=== PATIENT | male | born 1955 | race Caucasian/White ===

== ENCOUNTER → 2020-06-04 09:57 | Outpatient (BNVA) | payer MEDICARE, OTHER, SELFPAY | PROVIDERS: PCP Dermatology; Visit Provider Internal Medicine Rheumatology | DX: L40.50 Arthropathic psoriasis, unspecified (principal); L40.0 Psoriasis vulgaris; Z79.899 Other long term (current) drug therapy; Z11.59 Encounter for screening for other viral diseases; Z11.1 Encounter for screening for respiratory tuberculosis; R49.0 Dysphonia; L40.9 Psoriasis, unspecified; M45.9 Ankylosing spondylitis of unspecified sites in spine | CPT/HCPCS: 36415; 73130; 80076; 82565; 84443; 85025; 85651; 86480; 86704; 86803; 86812; 87340; 99204 ==

== ENCOUNTER 2020-06-04 11:51 | Outpatient (CLI) | payer MEDICARE, OTHER, SELFPAY ==
--- NOTE | 2020-06-04 12:12 | XR_ITS ---
WS: [id number] Right hand, 3 views, 06/04/2020 Clinical Data: Z79.899 - Other longterm (current) drug therapy Comparison: None. Findings: No fractures or dislocations are seen. There is osteoarthritic change with abundant spurr ing of the third through fifth DIP joints of the right hand. There is osteoarthritic narrowing of the right first IP joint with soft tissue swelling and narrowing of the right second DIP joint. There is minimal osteoarthritic change at the base of the right first metacarpal. No periarticular deminerali zation is seen. XR/XR hand RT min 3V* [id number] Impression: Diffuse osteoarthritic changes especially of the DIP joints of the right hand.
--- NOTE | 2020-06-04 12:12 | XR_ITS ---
WS: [id number] Left hand, 3 views, 06/04/2020 Clinical Data: Z79.899 - Other [facility] (current) drug therapy Comparison: None. Findings: No fractures or dislocations are seen. There is osteoarthritic change with bony overgrowth of the DIP joints of the second, fourth and fifth fingers of the left hand. There is osteoarthritic change of t he left first IP joint and of the left third DIP joint. There is osteoarthritis at the base of left f irst metacarpal. No periarticular demineralization is noted. XR/XR hand LT min 3V* [id number] Impression: 1. Osteoarthritis of the DIP joints and the left first IP joint of the hand. 2. Osteoarthritis of the base of the left first metacarpal.
[2020-06-04 12:44] LABS: Basophils % 0.6 %; Eosinophils # 0.2 10^3/uL (0.0-0.8); Hematocrit 50.2 % (42.0-52.0); Hemoglobin 16.4 g/dL (11.7-16.6); Lymphocytes # 1.1 10^3/uL (0.8-4.8); Lymphocytes % 15.9 %; Mean Corpuscular HGB Conc 32.7 g/dL (30.0-36.0); Mean Corpuscular Hemoglobin 29.7 pg (28.0-34.0); Mean Corpuscular Volume 90.9 fL (80-94); Mean Platelet Volume 8.3 fL (7.4-10.4); Monocytes # 0.5 10^3/uL (0.2-0.9); Monocytes % 8.1 %; Neutrophils # 4.81 10^3/uL (1.8-7.7); Neutrophils % 72.2 %; Nucleated Red Blood Cells % 0 %; Platelet Count 464 10^3/cmm (130-400); Red Blood Count 5.52 10^6/uL (4.1-5.3); White Blood Count 6.7 10^3/uL (4.0-10.0)
[2020-06-04 13:12] LABS: Alanine Aminotransferase 19 U/L (0-41); Albumin Level 4.3 g/dL (3.5-5.2); Alkaline Phosphatase 85 IU/L (40-130); Aspartate Amino Transferase 24 U/L (0-40); Globulin 2.9 g/dL (1.3-4.6); Glomerular Filtration Rate 113.2 mL/min (90-130); Thyroid Stimulating Hormone 1.23 uIU/mL (0.27-4.20); Total Bilirubin 0.7 mg/dL (0.15-1.2); Total Protein 7.2 g/dL (6.6-8.7)
[2020-06-04 13:41] LABS: Hepatitis B Core AB, Total Non-Reactive (Nonreactive); Hepatitis B Surface Antigen Non-Reactive (Nonreactive); Hepatitis C Virus Antibody Non-Reactive (Nonreactive)
[2020-06-04 14:23] LABS: Erythrocyte Sedimentation Rate 5 mm/hr (0-10)
[2020-06-06 12:57] LABS: Quantiferon Mitogen 3.98 IU/mL; Quantiferon Nil 0.01 IU/mL; Quantiferon TB Gold NEGATIVE (NEGATIVE)
[2020-06-07 17:53] LABS: HLA-B27 NEGATIVE (NEGATIVE)
== END 2020-06-04 11:52 | disposition home or self-care (01) ==
LOC: LAB 12:10
PROVIDERS: PCP Dermatology; Visit Provider Internal Medicine Rheumatology
DX: L40.50 Arthropathic psoriasis, unspecified (principal); L40.9 Psoriasis, unspecified; Z79.899 Other long term (current) drug therapy; Z11.59 Encounter for screening for other viral diseases; M45.9 Ankylosing spondylitis of unspecified sites in spine; Z11.1 Encounter for screening for respiratory tuberculosis
CPT/HCPCS: 36415; 73130; 80076; 82565; 84443; 85025; 85651; 86480; 86704; 86803; 86812; 87340

== ENCOUNTER → 2020-06-19 12:10 | Outpatient (BNVA) | payer MEDICARE, OTHER, SELFPAY | PROVIDERS: PCP Dermatology; Visit Provider Otolaryngology | DX: D49.1 Neoplasm of unspecified behavior of respiratory system (principal); Z20.822 Contact with and (suspected) exposure to COVID-19 | CPT/HCPCS: 87635 ==

== ENCOUNTER 2020-06-25 07:45 | Day surgery (SDC) | payer MEDICARE, OTHER, SELFPAY ==
[2020-06-24 14:27] VITALS: BMI 24.4
[2020-06-25 08:13] VITALS: BP 160/94; PULSE 90; RESP 16; TEMP 36.6; O2SAT 97
[2020-06-25] MEDS: sodium chloride 0.9% 1,000 ML 30 ML IV (08:26)
--- NOTE | 2020-06-25 09:23 | W.PM.OPSUD ---
Surgery/Procedure H&P Update DATE OF PROCEDURE: June 25, 2020 DATE H&P PERFORMED: 06/16/20 H&P UPDATE INFORMATION: I have reviewed H&P completed within last 30 days, I have examined patient prior to procedure and No changes to prior documentation PREOP DIAGNOSIS: Left glottic exophytic mass and chronic hoarseness PRIMARY INDICATION FOR PROCEDURE: Chronic hoarseness with left glottic exophytic mass found on flexible laryngoscopy PLANNED PROCEDURE: Operation Date: 06/25/20 09:40 Proposed Procedures p Direct Laryngoscopy w/ biopsy 23215 D49.1(Not Applicable) - Bernard Mendiola MD
[2020-06-25] MEDS: EPINEPHrine 1 mg/mL INJ XX (09:52)
--- NOTE | 2020-06-25 10:22 | P.OP_ITS ---
Operative Report Date of procedure: June 25, 2020 Pre-op Diagnosis: Left glottic exophytic mass and chronic hoarseness Post-op diagnosis: same Post-op Findings: Findings at surgery were exophytic irregular lobulated and papilliform mass extending from the superior aspect of the left true vocal cord and extending to the anterior commissure and just subglottic at that location. Procedure Done: Direct suspension microscopic laryngoscopy with excision of left vocal cord and anterior commissure mass for biopsy Specimens removed/disposition: Multiple samples of left anterior vocal cord and anterior commissure lesion Pathology: Biopsy specimens from glottic mass left vocal cord and anterior commi ssure and subglottic region Surgeon: Bernard Mendiola Anesthesia: General Estimated blood loss (mL): 5 Complications: No complications Findings: Findings on direct laryngoscopy revealed that the exophytic mass appeared to be emanating from the superior aspect of the left true vocal cord extending to the medial edge and anterior commissure and slightly subglottic. Condition: stable Disposition: PACU Brief History: 65-year-old male patient has had progressive hoarseness for months and was found on flexible laryngoscopy to have a mass emanating from the left anterior cord and into the space between the anterior commissure and left cord. He therefore is being brought to the operating room at this time to undergo direct suspension microscopic laryngoscopy with biopsy. The procedure its risks and complications were explained in detail to the patient in the office setting. These risks included bleeding infection numbness scarring swelling bruising hoarseness need for additional treatment as this is a diagnostic procedure only. If there is malignancy found or if papilloma is found he will need additional treatment. More serious risk such as heart attack stroke or not surviving the surgery were also discussed. With this understood informed consent was granted and witnessed. Procedure: Description of procedure: The patient was placed on the operating table in the supine position. Adequate general endotracheal tube anesthesia was obtained. He was given Ancef IV for prophylaxis and Decadron to help with postoperative edema. A timeout was accomplished identifying the patient date of plan procedure allergies fire risk and medications given. With all in agr eement the procedure continued. The table was rotated 90 degrees. The head was dropped 15 degrees to the horizontal. The eyes were taped shut and the head drape was applied in usual fashion. A tooth protector was placed over the upper dentition. K-Y jelly was applied around the area. An anterior commissure operating laryngoscope was then utilized it was inserted positioned and then suspended from [facility]. A microscope with a 400 lens was then used to visualize this area and with exploration and movement with cup forceps it was evident that this was highly irregular exophytic mass with papillary formations. It appeared to emanate from the superior aspect of the left true vocal cord over its medial edge and then to the anterior commissure. It did extend subglottically for small distance. Multiple pieces and segments were taken some small and some large. These were all sent to the pathologist for permanent section diagnosis. After as much as I could remove was removed the area was treated with cottonoid with 1-1000 epinephrine. After few minutes this was removed. The area was suctioned clean. An LTA was dispensed using 3 mL of lidocaine. Excess was suctioned. The scope was taken down from its suspension and the scope was removed. The mouth guard was removed. The throat was suctioned with the Amicar suction and there was no sign of any active bleeding at this time. Head drape and tape were removed and the patient was returned to the anesthesiologist for wake-up and extubation. He tolerated the procedure well and had an estimated blood loss of 5 mL.
[2020-06-25 10:27] VITALS: BP 110/72; PULSE 92; RESP 20; TEMP 36.3; O2SAT 92
[2020-06-25 10:30] VITALS: BP 101/64; PULSE 94; RESP 18; O2SAT 94
[2020-06-25 10:35] VITALS: BP 122/78; PULSE 88; RESP 20; TEMP 36.9; O2SAT 97
[2020-06-25 10:43] VITALS: BP 130/82; PULSE 88; RESP 18; TEMP 36.9; O2SAT 98
[2020-06-25 10:58] VITALS: BP 131/80; PULSE 81; RESP 17; TEMP 36.6; O2SAT 97
[2020-06-25] MEDS: TRAMadol 50 mg Tablet PO (11:04)
--- NOTE | 2020-06-25 15:15 | ANE.PACU2 ---
Inpatient post-anesthesia follow up: Airway intact: Yes Vital signs: Temperature 98 F Pulse Rate 81 Respiratory Rate 17 Blood Pressure 131/80 Pulse Oximetry 97 Oxygen Delivery Me thod Room Air Oxygen Flow Rate 6 Fraction of Inspir ed Oxygen Hydration adequate: Yes Nausea and vomiting: No Pain level: 2 Mental status: Baseline
== END 2020-06-25 11:50 | disposition home or self-care (01) ==
PROVIDERS: PCP Dermatology; Visit Provider Otolaryngology
PROC: 0CJS8ZZ Inspection of Larynx, Via Natural or Artificial Opening Endoscopic (ICD-10-PCS; CPT 31541; principal; 2020-06-25 09:30)
DX: C32.0 Malignant neoplasm of glottis (principal); R49.0 Dysphonia; D49.1 Neoplasm of unspecified behavior of respiratory system
CPT/HCPCS: 31541; 88305; 96365; J0171; J0330; J0690; J2704; J7030

== ENCOUNTER → 2020-07-08 14:51 | Outpatient (BNVA) | payer MEDICARE, OTHER, SELFPAY | PROVIDERS: PCP Dermatology; Visit Provider Internal Medicine Rheumatology | DX: L40.50 Arthropathic psoriasis, unspecified (principal); L40.0 Psoriasis vulgaris; C32.0 Malignant neoplasm of glottis; D49.1 Neoplasm of unspecified behavior of respiratory system; Z79.899 Other long term (current) drug therapy | CPT/HCPCS: 99214 ==

== ENCOUNTER 2020-07-18 05:54 | Outpatient (RCR) | payer MEDICARE, OTHER, SELFPAY ==
--- NOTE | 2020-07-07 14:11 | N.ONRAD NP_ITS ---
Radiation Oncology Consultation Patient Name: Dudley Moses Date of : 1955 Date of Service: 07/07/2020 Attending Physician: Pravez Christina M.D. Dudley Moses was seen in consultation this afternoon at the request of Bernard Mendiola M.D. for consideration of head and neck radiotherapy for the management of his recently diagnosed glottic cancer. He initially presented to the [facility] Department of with intermittent hoarseness for approximately 1 year. A flexible laryngoscopy performed on June 16, 2020 demonstrated a 5 mm x 3 mm x 2 mm left true vocal cord lesion without evidence of vocal cord paralysis. A direct microscopic laryngoscopy with excision of left vocal cord lesion was completed on June 25, 2020 identified the left true reviewed in [facility]) diagnosed a nonkeratinizing, moderately differentiated invasive squamous cell carcinoma. The patient was evaluated for consideration of definitive radiotherapy. I discussed with Mr. Moses the AJCC clinical stage II (T2N0) glottic cancer specific to his diagnosis and the National Comprehensive Cancer Network Guidelines endorsing partial laryngectomy or radiotherapy. I would recommend accelerated fractionated radiotherapy as per the [employer] trial that randomized T1 and T2 glottic cancer patients to conventional or hypofractionation. The study failed to demonstrate non-inferiority of the accelerated treatment (local progression-free survival trended positively for the hypofractionated arm). Prior to beginning treatment, a computed tomographic radiotherapy planning scan will be acquired to delineate the clinical target volume. The potential toxicities of head and neck radiotherapy were reviewed. He has verbalized understanding would like to proceed as recommended. The patient's medical treatment plan has been discussed with Bernard Mendiola M.D. Signed by: Dr. Parvez Christina 07/07/2020 2:09:41 PM
--- NOTE | 2020-07-09 | CT_ITS ---
Radiation Therapy Planning CT images; total exam DLP: 557.83 mGy-cm MTDD
--- NOTE | 2020-07-14 12:10 | ONCRAD TMN_ITS ---
Radiation Oncology Weekly Treatment Management Patient: Dudley Moses MR#: [id number] : 1955 Attending Physician: Dr. Cas Wells Date of Service: 07/14/2020 Referring Physician(s) : Dr. 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 ID: [id number], Energy: 6X, Dose/Fx (cGy): 225, #Fx: , Dose Correction (cGy): 0, Total Dose (cGy): 225, Start Date: 07/14/2020, Elapsed Days: 0 Reason for visit: The patient is being seen today as part of their regularly scheduled weekly on treatment visits to assess for acute toxicities from radiotherapy. Review of Systems: Just began treatment today. Active at home. Never smoked. Has scheduled cataract surgeries on 08/12 and 08/26/2020. Vital Signs: Performed on 07/14/2020 11:33 AM BMI - 24.547 kg/m2 (high), Height - 71.00 in, Weight - 176.0 lbs, Temperature - 97.9 f, Pulse - 88, Respiration - 18, O2 Sat - 96 %, Pain - 0, Fatigue - 0 and BP - 157/ 94 mm(hg)(high). Physical Exam: omitted Imaging: Radiation therapy imaging related to accurate target localization (i.e. KV, MV and CBCT) was reviewed. Appropriate changes, if any, were made to ensure treatment accuracy. Plan: Good tolerance of treatment. Discussed use of salt and soda gargles and skin care. If a day needs to be delayed for cataract surgery this would be acceptable. Continue treatment as planned. Signed by: Dr. Cas Wells 07/14/2020 12:08:28 PM
== END 2020-07-21 23:59 | disposition home or self-care (01) ==
LOC: ONCMED 05:54
PROVIDERS: PCP Dermatology; Visit Provider Radiology Radiation Oncology
DX: Z51.0 Encounter for antineoplastic radiation therapy (principal); C32.0 Malignant neoplasm of glottis; Z79.899 Other long term (current) drug therapy
CPT/HCPCS: 77290; 77295; 77300; 77334; 77387; 77412; 99205

== ENCOUNTER 2020-08-20 05:50 | Outpatient (RCR) | payer MEDICARE, OTHER, SELFPAY ==
--- NOTE | 2020-07-22 11:48 | ONCRAD TMN_ITS ---
Radiation Oncology Treatment Management Note Patient Name: Dudley Moses Date of : 1955 Date of Service: 07/22/2020 Attending Physician: Parvez Christina M.D. Dudley Moses is a 65 year old white male diagnosed with a clinical stage II (T2N0) glottic cancer. A direct microscopic laryngoscopy with excision of the left vocal cord lesion completed on June 25, 2020 identified a nonkeratinizing, moderately differentiated invasive squamous cell carcinoma. The T2 designation is on account of subglottic extension. The patient has received 13.5 Gy of a prescribed 67.5 Villanueva with a 3D-conformal radiotherapy plan utilizing opposed lateral portal rios with a wedge pair. Upon review of systems, he denied any complaints related to radiotherapy. On physical examination, the patient weighed 177 lbs. His temperature was 97.8 ???F with a blood pressure of 152/87 mmHg. His pulse was 98 bpm and the respiratory rate was 18. No erythema within the treatment rios. Continue glottic radiotherapy as prescribed. Signed by: Dr. Parvez Christina 07/22/2020 11:47:50 AM
--- NOTE | 2020-07-28 11:52 | ONCRAD TMN_ITS ---
Radiation Oncology Treatment Management Note Patient Name: Dudley Moses Date of : 1955 Date of Service: 07/28/2020 Attending Physician: Parvez Christina M.D. Dudley Moses is a 65 year old white male diagnosed with a clinical stage II (T2N0) glottic cancer. A direct microscopic laryngoscopy with excision of the left vocal cord lesion completed on June 25, 2020 identified a nonkeratinizing, moderately differentiated invasive squamous cell carcinoma. The T2 designation is on account of subglottic extension. The patient has received 22.5 Gy of a prescribed 67.5 Villanueva with a 3D-conformal radiotherapy plan utilizing opposed lateral portal rios with a wedge pair. Upon review of systems, he described mild odynophagia. On physical examination, the patient weighed 175 lbs. His temperature was 97.9 ???F with a blood pressure of 155/91 mmHg. His pulse was 92 bpm and the respiratory rate was 18. No erythema within the treatment rios. Continue glottic radiotherapy as planned. I will prescribe oxycodone elixir for odynophagia. Signed by: Dr. Parvez Christina 07/28/2020 11:52:05 AM
--- NOTE | 2020-08-04 11:50 | ONCRAD TMN_ITS ---
Radiation Oncology Treatment Management Note Patient Name: Dudley Moses Date of : 1955 Date of Service: 08/04/2020 Attending Physician: Parvez Christina M.D. Dudley Moses is a 65 year old white male diagnosed with a clinical stage II (T2N0) glottic cancer. A direct microscopic laryngoscopy with excision of the left vocal cord lesion completed on June 25, 2020 identified a nonkeratinizing, moderately differentiated invasive squamous cell carcinoma. The T2 designation is on account of subglottic extension. The patient has received 29.25 Gy of a prescribed 67.5 Villanueva with a 3D-conformal radiotherapy plan utilizing opposed lateral portal rios with a wedge pair. Upon review of systems, he denied any symptoms attributable to radiotherapy. On physical examination, the patient weighed 179 lbs. His temperature was 98.1 ???F with a blood pressure of 142/87 mmHg. His pulse was 84 bpm and the respiratory rate was 18. There was a Grade I dermatitis within the treatment rios. Continue glottic radiotherapy as prescribed. Signed by: Dr. Parvez Christina 08/04/2020 11:48:31 AM
--- NOTE | 2020-08-11 11:25 | ONCRAD TMN_ITS ---
Radiation Oncology Treatment Management Note Patient Name: Dudley Moses Date of : 1955 Date of Service: 08/11/2020 Attending Physician: Parvez Christina M.D. Dudley Moses is a 65 year old white male diagnosed with a clinical stage II (T2N0) glottic cancer. A direct microscopic laryngoscopy with excision of the left vocal cord lesion completed on June 25, 2020 identified a nonkeratinizing, moderately differentiated invasive squamous cell carcinoma. The T2 designation is on account of subglottic extension. The patient has received 40.5 Gy of a prescribed 67.5 Villanueva with a 3D-conformal radiotherapy plan utilizing opposed lateral portal rios with a wedge pair. Upon review of systems, he denied any symptoms attributable to radiotherapy. On physical examination, the patient weighed 179 lbs. His temperature was 98.1 ???F with a blood pressure of 142/87 mmHg. His pulse was 84 bpm and the respiratory rate was 18. There was a grade II dermatitis within the treatment rios. Continue glottic radiotherapy as planned. Signed by: Dr. Parvez Christina 08/11/2020 11:23:17 AM
--- NOTE | 2020-08-18 11:37 | ONCRAD TMN_ITS ---
Radiation Oncology Treatment Management Note Patient Name: Dudley Moses Date of : 1955 Date of Service: 08/18/2020 Attending Physician: Parvez Christina M.D. Dudley Moses is a 65 year old white male diagnosed with a clinical stage II (T2N0) glottic cancer. A direct microscopic laryngoscopy with excision of the left vocal cord lesion completed on June 25, 2020 identified a nonkeratinizing, moderately differentiated invasive squamous cell carcinoma. The T2 designation is on account of subglottic extension. The patient has received 49.5 Gy of a prescribed 67.5 Villanueva with a 3D-conformal radiotherapy plan utilizing opposed lateral portal rios with a wedge pair. Upon review of systems, he denied any symptoms attributable to radiotherapy. On physical examination, the patient weighed 178 lbs. His temperature was 98.8 ???F with a blood pressure of 157/79 mmHg. His pulse was 103 bpm and the respiratory rate was 20. There was a grade II dermatitis within the treatment rios. Continue glottic radiotherapy as prescribed. Signed by: Dr. Parvez Christina 08/18/2020 11:35:45 AM
== END 2020-08-20 23:59 | disposition home or self-care (01) ==
LOC: ONCMED 05:50
PROVIDERS: PCP Dermatology; Visit Provider Radiology Radiation Oncology
DX: Z51.0 Encounter for antineoplastic radiation therapy (principal); C32.0 Malignant neoplasm of glottis; Z79.899 Other long term (current) drug therapy
CPT/HCPCS: 77336; 77387; 77412

== ENCOUNTER 2020-09-01 05:37 | Outpatient (RCR) | payer MEDICARE, OTHER, SELFPAY ==
--- NOTE | 2020-08-27 12:36 | ONCRAD TMN_ITS ---
Radiation Oncology Treatment Management Note Patient Name: Dudley Moses Date of : 1955 Date of Service: 08/27/2020 Attending Physician: Parvez Christina M.D. Dudley Moses is a 65 year old white male diagnosed with a clinical stage II (T2N0) glottic cancer. A direct microscopic laryngoscopy with excision of the left vocal cord lesion completed on June 25, 2020 identified a nonkeratinizing, moderately differentiated invasive squamous cell carcinoma. The T2 designation is on account of subglottic extension. The patient has received 60.75 Gy of a prescribed 67.5 Villanueva with a 3D-conformal radiotherapy plan utilizing opposed lateral portal rios with a wedge pair. Upon review of systems, he denied any symptoms attributable to radiotherapy. On physical examination, the patient weighed 179 lbs. His temperature was 98.6 ???F with a blood pressure of 152/87 mmHg. His pulse was 95 bpm and the respiratory rate was 18. There was a grade I dermatitis within the treatment rios. Continue glottic radiotherapy as planned. Signed by: Dr. Parvez Christina 08/27/2020 12:35:18 PM
== END 2020-09-20 23:59 | disposition home or self-care (01) ==
LOC: ONCMED 05:37
PROVIDERS: PCP Dermatology; Visit Provider Radiology Radiation Oncology
DX: Z51.0 Encounter for antineoplastic radiation therapy (principal); C32.0 Malignant neoplasm of glottis; Z79.899 Other long term (current) drug therapy
CPT/HCPCS: 77014; 77336; 77387; 77412; 77427

== ENCOUNTER 2020-10-03 06:20 | Outpatient (RCR) | payer MEDICARE, OTHER, SELFPAY ==
--- NOTE | 2020-10-03 11:29 | ONCRAD EPV_ITS ---
Radiation Oncology Follow-Up Note Patient Name: Dudley Moses Date of : 1955 Date of Service: 10/03/2020 Attending Physician: Parvez Christina M.D. Dudley Moses returned to my office this morning for a scheduled follow-up appointment. He completed glottic radiotherapy in August for the management of a clinical stage II (T2N0) glottic cancer. A direct microscopic laryngoscopy with excision of the left vocal cord lesion completed on June 25, 2020 identified a nonkeratinizing, moderately differentiated invasive squamous cell carcinoma. The T2 designation is on account of subglottic extension. Daily radiotherapy was administered between the dates of July 14, 2020 through September 01, 2020. A prescribed dose of 67.5 Gy was delivered in 30 fractions encompassing 50 elapsed days. On review of systems, He reported improving hoarseness. On physical examination, the patient weighed of 175 pounds. The temperature is 97.4???F. His blood pressure was 147/89 mmHg. The pulse was 91 bpm and his respiratory rate was 18 breaths per minute. Examination of the neck did not demonstrate any hyperpigmentation. In summary, Mr. Moses returned for a post-radiotherapy appointment. He has no sequelae from treatment. A recent flexible nasopharyngoscopy identified a complete response to treatment. He will continue follow-up with ENT as scheduled. Signed by: Dr. Parvez Christina 10/03/2020 11:28:44 AM
== END 2020-10-21 23:59 | disposition home or self-care (01) ==
LOC: ONCMED 06:20
PROVIDERS: PCP Dermatology; Visit Provider Radiology Radiation Oncology
DX: C32.0 Malignant neoplasm of glottis (principal); R49.0 Dysphonia; L81.9 Disorder of pigmentation, unspecified; Z79.899 Other long term (current) drug therapy
CPT/HCPCS: 99024

== ENCOUNTER → 2020-11-19 10:32 | Outpatient (BNVA) | payer MEDICARE, OTHER, SELFPAY | PROVIDERS: PCP Dermatology; Visit Provider Internal Medicine Rheumatology | DX: Z71.89 Other specified counseling (principal); Z79.899 Other long term (current) drug therapy; L40.0 Psoriasis vulgaris; I10 Essential (primary) hypertension; L40.50 Arthropathic psoriasis, unspecified; Z13.220 Encounter for screening for lipoid disorders; Z13.6 Encounter for screening for cardiovascular disorders; Z76.89 Persons encountering health services in other specified circumstances | CPT/HCPCS: 36415; 80053; 80061; 80076; 82565; 85025; 86140 ==

== ENCOUNTER 2020-12-09 12:52 | Outpatient (CLI) | payer MEDICARE, OTHER, SELFPAY ==
--- NOTE | 2020-12-09 13:00 | XR_ITS ---
WS: [id number] LEFT KNEE: 3 VIEW(S) TECHNIQUE: AP, oblique(s) and lateral. HISTORY: L knee pain COMPARISON: None available. No fracture or dislocation. Minimal joint space narrowing medial compartment. Small osteophytes along the posterior surface of pa tella. No joint effusion. No soft tissue abnormality. XR/XR knee LT 3V* [id number] IMPRESSION: No acute fracture. No joint effusion.
== END 2020-12-09 12:53 | disposition home or self-care (01) ==
PROVIDERS: PCP Dermatology; Visit Provider Family Medicine
DX: L40.0 Psoriasis vulgaris (principal); L40.50 Arthropathic psoriasis, unspecified; C32.0 Malignant neoplasm of glottis; D49.1 Neoplasm of unspecified behavior of respiratory system; Z71.89 Other specified counseling; Z79.899 Other long term (current) drug therapy; M25.562 Pain in left knee
CPT/HCPCS: 73562; 99214

== ENCOUNTER → 2021-06-24 12:50 | Outpatient (BNVA) | payer MEDICARE, OTHER, SELFPAY | PROVIDERS: PCP Family Medicine; Visit Provider Otolaryngology | DX: C32.0 Malignant neoplasm of glottis (principal) | CPT/HCPCS: 31575; 99204; 99214 ==

== ENCOUNTER 2021-07-16 07:53 | Day surgery (SDC) | payer MEDICARE, OTHER, SELFPAY ==
[2021-07-15 09:48] VITALS: BMI 24.4
[2021-07-16] VITALS (8 sets, daily range): BP systolic 123–148; BP diastolic 69–87; PULSE 82–90; RESP 12–16; TEMP 36.1–36.8; O2SAT 92–97
[2021-07-16] MEDS: sodium chloride 0.9% 1,000 ML 30 ML IV (08:57)
--- NOTE | 2021-07-16 09:26 | ANES.PREANE2 ---
Pre-Anesthetic Assessment Height/Weight: Height 1.8 m Weight 79.379 kg Temp Pulse Resp BP Pulse Ox 98.2 F 90 16 148/87 97 07/16/21 08:48 07/16/21 08:48 07/16/21 08:48 07/16/21 08:48 07/16/21 08:48 Preop Diagnosis: Left true vocal cord malignancy Operation Date: 07/16/21 09:35 Proposed Procedures p Direct microscopoic shirin laryngoscopy with excision of L vocal cord 30457/36657/C32.0(Not Applicable) - Bernard Mendiola MD Familial anesthetic complications: none Was Beta Jerardo taken within 24 hours: N/A Was Clonidine taken within 24 hours: N/A Last intake: Intake Last Liquid Date 07/15/21 Last Liquid Time 23:00 Last Solid Date 07/15/21 Last Solid Time 21:00 Social No alcohol and No tobacco Exam alert, oriented x 3, clear to auscultation bilaterally and regular rate & rhythm Airway Mallampati: Class III Dentition: false Pulmonary None reported CV/HEM Hypertension None reported Hepatic None reported GI None reported Metabolic None reported Musc/skel psoriatic arthritis Neuropsych None reported Anesthetic Plan ASA status: 2 Anesthesia: General Risk of > 500 ml blood loss (7ml/kg in children): No Medications/Allergies Home Medications Medication Instructions Recorded Confirmed Last Taken Type triamcinolone acetonide 0.1 % 1 applic TOPICAL BID 06/03/20 07/16/21 07/15/21 History topical cream apremilast 30 mg tablet (Otezla) 30 mg PO BID 06/04/20 07/16/21 07/15/21 History amlodipine 5 mg tablet (Norvasc) 5 mg PO DAILY #90 tab 06/29/21 07/16/21 07/16/21 Rx Allergies Allergy/AdvReac Type Severity Reaction Status Date / Time No Known Allergies Allergy Verified 07/15/21 09:39 Current Medications Generic Name Dose Route Start Last Admin Trade Name Freq PRN Reason Stop Dose Admin Sodium Chloride 1,000 mls @ 30 mls/hr 07/16/21 08:45 07/16/21 08:57 Sodium Chloride 0.9% IV 07/17/21 08:44 30 mls/hr .Q24H ANAMARIA Administration PFSH Anesthesia Medical History Dactylitis of finger High risk medication use Immunization counseling Joint pain Plaque psoriasis Psoriatic arthritis Surgical History History of dental surgery Family History Other Rheumatoid arthritis Denies family history of Diabetes Lupus CAD (coronary artery disease) Hyperlipidemia Chronic kidney disease (CKD) Lung disease Cancer Hypertension Stroke Social History Smoking and tobacco status: never smoked Alcohol intake: current Alcohol intake frequency: 0-2 Drinks per Day History of recent travel: No (06/04/2020) Data Anesthesia Cardiac Studies: No Data to Display
[2021-07-16] MEDS: EPINEPHrine 1 mg/mL INJ XX (10:40)
--- NOTE | 2021-07-16 10:55 | P.OP_ITS ---
Operative Report Date of procedure: July 16, 2021 Pre-op diagnosis: Preop Diagnosis Left true vocal cord malignancy Post-op diagnosis: Same Post-op findings: Erythematous exophytic lesion superior surface of anterior left true vocal cord to anterior commissure Procedure done: Direct suspension microscopic laryngoscopy with left true vocal cord biopsy Implants: No implants Specimens removed/disposition: Left true vocal cord biopsy specimen Pathology: Left true vocal cord biopsy specimens Surgeon: Bernard Mendiola MD Anesthesia: General Estimated blood loss: 10 mL Complications: No complications encountered Findings: Left true vocal cord anterior superior surface with erythematous exophytic growth extending to anterior commissure. None of this extended subglottically. 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 He received definitive radiation therapy for primary treatment. Lately he has noticed a slight in crease in hoarseness and on most recent exam with flexible laryngoscopy he was noted to have a lesion that was erythematous and exophytic and covered the anterior third of the left true vocal cord. He therefore is being brought to the operating room to undergo direct suspension microscopic laryngoscopy and biopsy of this lesion. Procedure: Description of procedure: The patient was placed on the operating table in the supine position. Adequate general endotracheal tube anesthesia was obtained. The table was rotated 90 degrees with had dropped 15 degrees to the horizontal. The eyes were taped shut. A timeout was accomplished identifying the patient date of plan procedure allergies fire risk and medications given. With all in agreement the procedure continued. A mouthguard was placed over the upper dentition. An anterior commissure laryngoscope was inserted after coating it with K-Y jelly. This was inserted to the larynx posterior to the epiglottis and extending to the region of the arytenoids and then the suspension apparatus was applied to the laryngoscope and opened and suspended from Dumont stand. With pressure applied from anterior aspect of the larynx the lesion was seen on the anteriormost portion of the left true vocal cord. This was biopsied in a piecemeal fashion with various size cup forceps. Some's were less than a millimeter and some more larger. This was taken from the vocal cord all the way to the anterior commissure. Then a cottonoids soaked in 1-1000 epinephrine was applied to the biopsy site. This was left in place for a few minutes. After removal there was no active bleeding. The area was suctioned clean. The suspension was taken down. The laryngoscope was removed. The mouthgag was removed. Patient's head was returned to the upright position. Head drape and tape were removed. The throat was suctioned once again. With no active bleeding evident the patient was returned to anesthesia for wake-up and extubation. He tolerated the procedure well and estimated blood loss of 10 mL or less and arrived in recovery in stable condition.
--- NOTE | 2021-07-16 10:55 | W.PM.OPSUD ---
Surgery/Procedure H&P Update DATE OF PROCEDURE: July 16, 2021 DATE H&P PERFORMED: 06/24/21 H&P UPDATE INFORMATION: I have reviewed H&P completed within last 30 days, I have examined patient prior to procedure and No changes to prior documentation CHANGES TO PREVIOUS DOCUMENTATION: No changes PREOP DIAGNOSIS: Left true vocal cord malignancy PRIMARY INDICATION FOR PROCEDURE: Left anterior true vocal cord lesion with previous history of squamous cell carcinoma PLANNED PROCEDURE: Operation Date: 07/16/21 09:35 Proposed Procedures p Direct microscopoic shirin laryngoscopy with excision of L vocal cord 67080/88348/C32.0(Not Applicable) - Bernard Mendiola MD
--- NOTE | 2021-07-16 14:29 | ANE.PACU2 ---
Inpatient post-anesthesia follow up: Airway intact: Yes Vital signs: Temperature 97.9 F Pulse Rate 83 Respiratory Rate 16 Blood Pressure 133/77 Pulse Oximetry 94 Oxygen Delivery Me thod Room Air Oxygen Flow Rate Fraction of Inspir ed Oxygen Hydration adequate: Yes Nausea and vomiting: No Pain level: 1 Mental status: Baseline
== END 2021-07-16 12:00 | disposition home or self-care (01) ==
PROVIDERS: PCP Family Medicine; Visit Provider Otolaryngology
PROC: 0CJS8ZZ Inspection of Larynx, Via Natural or Artificial Opening Endoscopic (ICD-10-PCS; CPT 31536; principal; 2021-07-16 09:25)
DX: C32.0 Malignant neoplasm of glottis (principal); I10 Essential (primary) hypertension
CPT/HCPCS: 31536; 88305; J0171; J0330; J1100; J2370; J2405; J2704; J3010; J3490; J7030

== ENCOUNTER → 2021-07-22 13:16 | Outpatient (BNVA) | payer MEDICARE, OTHER, SELFPAY | PROVIDERS: PCP Family Medicine; Visit Provider Otolaryngology | DX: C32.0 Malignant neoplasm of glottis (principal) | CPT/HCPCS: 99212; 99213 ==

== ENCOUNTER → 2021-08-21 11:24 | Outpatient (BNVA) | payer MEDICARE, OTHER, SELFPAY | PROVIDERS: PCP Family Medicine; Visit Provider Otolaryngology | DX: C32.0 Malignant neoplasm of glottis (principal); R49.0 Dysphonia | CPT/HCPCS: 31575; 99213 ==

== ENCOUNTER → 2021-10-28 09:16 | Outpatient (BNVA) | payer MEDICARE, OTHER, SELFPAY | PROVIDERS: PCP Family Medicine; Visit Provider Otolaryngology | DX: Z85.21 Personal history of malignant neoplasm of larynx (principal); R49.0 Dysphonia; C32.0 Malignant neoplasm of glottis | CPT/HCPCS: 31575; 99213 ==

== ENCOUNTER → 2021-12-28 14:23 | Outpatient (BNVA) | payer MEDICARE, OTHER, SELFPAY | PROVIDERS: PCP Family Medicine; Visit Provider Otolaryngology | DX: C32.0 Malignant neoplasm of glottis (principal) | CPT/HCPCS: 31575; 99213 ==

== ENCOUNTER 2022-01-20 13:20 | Outpatient (CLI) | payer MEDICARE, OTHER, SELFPAY ==
--- NOTE | 2022-01-20 13:38 | CT_ITS ---
WS: [id number] CT NECK TECHNIQUE: Contrast-enhanced CT of the neck with coronal and sagittal reformatted images. CLINICAL INFORMATION: HEAD/NECK CANCER, STAGING COMPARISON: None. DLP: 329.[address] scans at [facility] use at least one of these dose optimization techniques: automated e xposure control; mA and/or kV adjustment per patient size (includes targeted exams where dose is matc hed to clinical indication); or iterative reconstruction. FINDINGS: No prior comparisons available. Parotid glands are normal in appearance. Normal submandibular glands. Tongue base appears normal. Nor mal parapharyngeal fat. Normal posterior nasopharynx. Mastoid air cells are well aerated. Mild mucosal thickening in the paranasal sinuses. Retention cysts or polyps in LEFT greater than RIGHT maxillary sinuses. Lung apices are well aerated. Diffuse nodular soft tissue lesion involving the supraglottis and glottis at the level of the vocal f olds extending to the level of the vocal cords. This involves the anterior commissure and crosses mid line. Mild diffuse thickening and enhancement involving the fixed margin epiglottis. Mild narrowing o f the piriform sinuses bilaterally. Slight induration and enhancement extending into the preepiglotti c space. Mass results in mild circumferential narrowing of the glottis which remains patent. No evide nce of subglottic extension. Subcutaneous soft tissue nodule overlying this the RIGHT platysma along the posterior margin of the R IGHT submandibular gland measuring 6 mm is nonspecific. A few prominent upper cervical chain level 2 and jugular digastric lymph nodes are nonspecific. This can be further evaluated with PET/CT. Partially visualized and normal caliber thoracic aorta. Tiny RIGHT inferior pole thyroid nodule measu ring 3 mm. A few slight prominent posterior triangle lymph nodes on the RIGHT not pathologically enla rged Straightening of the normal cervical lordosis. Mild spondylitic changes. Disc space narrowing worse a t C6-C7. CT/CT neck w con* [id number] IMPRESSION: 1. Heterogeneously enhancing nodular soft tissue mass at the level of the true and false vocal cords with mild circumferential narrowing of the glottis. 2. Heterogeneous enhancing glottic mass involves the anterior commissure and e xtends RIGHT and LEFT of midline. Involvement of the paraglottic fat. This exte nds anteriorly to involve the thyroid cartilage. 3. A few prominent upper cervical chain level 2 and jugulodigastric lymph node s nonspecific. Recommend further evaluation with PET/CT. 4. Indeterminant small soft tissue nodule in the subcutaneous soft tissues ove rlying the RIGHT posterior submandibular gland and platysma. This abuts the ski n but metastatic disease not excluded. 5. Normal salivary glands. 6. Polypoid mucosal thickening involving the maxillary sinuses LEFT greater th an RIGHT.
[2022-01-20 14:30] LABS: Blood Urea Nitrogen 8 mg/dL (8-23)
[2022-01-20 14:31] LABS: Glomerular Filtration Rate 84.4 mL/min (90-130)
== END 2022-01-20 13:21 | disposition home or self-care (01) ==
LOC: RAD 13:21
PROVIDERS: PCP Family Medicine; Visit Provider Otolaryngology
DX: C76.0 Malignant neoplasm of head, face and neck (principal)
CPT/HCPCS: 70491; 82565; 84520; Q9967

== ENCOUNTER 2022-02-18 10:21 | Outpatient (CLI) | payer MEDICARE, OTHER, SELFPAY | END 2022-02-18 10:22 | disposition home or self-care (01) | LOC: RT 10:24 | PROVIDERS: PCP Family Medicine; Visit Provider Otolaryngology | DX: C32.0 Malignant neoplasm of glottis (principal) | CPT/HCPCS: 94010; 94726; 94729 ==

== ENCOUNTER 2022-07-27 09:15 | Outpatient (RCR) | payer MEDICARE, OTHER, SELFPAY | END 2022-08-20 23:59 | disposition home or self-care (01) | LOC: SPT 09:15 | PROVIDERS: PCP Family Medicine; Visit Provider Physician Assistant | DX: M25.60 Stiffness of unspecified joint, not elsewhere classified (principal); M53.82 Other specified dorsopathies, cervical region; M62.89 Other specified disorders of muscle | CPT/HCPCS: 97140; 97161 ==

== ENCOUNTER 2022-08-21 06:00 | Outpatient (RCR) | payer MEDICARE, OTHER, SELFPAY | END 2022-09-20 23:59 | disposition home or self-care (01) | LOC: SPT 06:00 | PROVIDERS: PCP Family Medicine; Visit Provider Physician Assistant | DX: M53.82 Other specified dorsopathies, cervical region (principal); M62.89 Other specified disorders of muscle | CPT/HCPCS: 97110 ==

== ENCOUNTER 2022-09-23 15:14 | Outpatient (RCR) | payer MEDICARE, OTHER, SELFPAY | END 2022-10-21 23:59 | disposition home or self-care (01) | LOC: SST 15:14 | PROVIDERS: PCP Family Medicine; Visit Provider Otolaryngology | DX: C32.9 Malignant neoplasm of larynx, unspecified (principal); R49.8 Other voice and resonance disorders; R13.13 Dysphagia, pharyngeal phase | CPT/HCPCS: 92507; 92524; 92526; 92610 ==

== ENCOUNTER 2022-10-22 06:00 | Outpatient (RCR) | payer MEDICARE, OTHER, SELFPAY | END 2022-11-20 23:59 | disposition home or self-care (01) | LOC: SST 06:00 | PROVIDERS: PCP Family Medicine; Visit Provider Otolaryngology | DX: C32.9 Malignant neoplasm of larynx, unspecified (principal) | CPT/HCPCS: 92507; 92526 ==

== ENCOUNTER 2022-11-21 06:00 | Outpatient (RCR) | payer MEDICARE, OTHER, SELFPAY | END 2022-12-21 23:59 | disposition home or self-care (01) | LOC: SST 06:00 | PROVIDERS: PCP Family Medicine; Visit Provider Otolaryngology | DX: C32.9 Malignant neoplasm of larynx, unspecified (principal) | CPT/HCPCS: 92507; 92526; 92610 ==

== ENCOUNTER 2022-12-22 06:00 | Outpatient (RCR) | payer MEDICARE, OTHER, SELFPAY | END 2023-01-20 23:59 | disposition home or self-care (01) | LOC: SST 06:00 | PROVIDERS: PCP Family Medicine; Visit Provider Otolaryngology | DX: C32.9 Malignant neoplasm of larynx, unspecified (principal) | CPT/HCPCS: 92507 ==

== ENCOUNTER 2023-12-14 10:47 | Outpatient (CLI) | payer MEDICARE, OTHER, SELFPAY ==
--- NOTE | 2023-12-14 11:00 | MR_ITS ---
WS: [id number] MRI BRAIN WITH AND WITHOUT CONTRAST HISTORY: metastatic head and neck cancer COMPARISON: None available. TECHNIQUE: Multiplanar imaging performed through the brain with MultiHance 15 ml's IV. No acute infarcts are seen. Villanueva-white matter differentiation is well preserved. Mild scattered T2 an d FLAIR signal hyperintensities in the subcortical white matter distribution consistent with small ve ssel disease. No prior large territory infarct. No susceptibility artifacts or prior lacunar infarcts. Ventricles and extra-axial spaces are normal. Clivus and pituitary gland are normal. No signal abnormality in the brainstem or posterior fossa. There is a single ring-enhancing mass in the posterior LEFT parietal lobe near the junction with the occipital lobe. There is no adjacent edema. This is highly suspicious for a metastatic focus. No delia tional areas of abnormal enhancement are identified. Dural venous sinuses are normal. Paranasal sinuses: Mucous retention cyst in the LEFT maxillary sinus. Mastoid air cells: Normal. Calvarium and scalp: Normal. MR/MR head wo/w con [id number] IMPRESSION: 1. Single ring-enhancing 4.5 mm mass highly suspicious for metastatic disease in the posterior LEFT parietal lobe. No surrounding edema. No prior studies for comparison. No additional enhancing lesions are identified. 2. No acute infarct. 3. Mild small vessel microvascular disease.
[2023-12-14] MEDS: gadobenate dimeglumine 20 mL vial IV (11:24)
== END 2023-12-14 10:48 | disposition home or self-care (01) ==
LOC: RAD 10:48
PROVIDERS: PCP Family Medicine; Visit Provider Internal Medicine Hematology & Oncology
DX: C32.0 Malignant neoplasm of glottis (principal); C78.00 Secondary malignant neoplasm of unspecified lung; D43.0 Neoplasm of uncertain behavior of brain, supratentorial; J34.1 Cyst and mucocele of nose and nasal sinus
CPT/HCPCS: 70553

== ENCOUNTER → 2023-12-22 13:55 | Outpatient (BNVA) | payer MEDICARE, OTHER, SELFPAY | PROVIDERS: PCP Family Medicine; Referring Provider Internal Medicine Hematology & Oncology; Visit Provider Student in an Organized Health Care Education/Training Program | DX: Z95.828 Presence of other vascular implants and grafts (principal); C78.00 Secondary malignant neoplasm of unspecified lung; D49.1 Neoplasm of unspecified behavior of respiratory system | CPT/HCPCS: 99204 ==

== ENCOUNTER 2023-12-22 14:48 | Oncology outpatient (recurring) (ONCR) | payer MEDICARE, OTHER, SELFPAY ==
[2023-12-13 14:52] LABS: Basophils % 0.4 %; Eosinophils # 0.4 10^3/uL (0.0-0.8); Eosinophils % 4.5 %; Hematocrit 42.2 % (37-53); Lymphocytes # 1.4 10^3/uL (0.8-4.8); Lymphocytes % 18.4 %; Mean Corpuscular HGB Conc 31.5 g/dL (30-55); Mean Corpuscular Hemoglobin 26.9 pg (27-33); Mean Corpuscular Volume 85.4 fl (82-101); Monocytes # 0.7 10^3/uL (0.2-0.9); Monocytes % 8.5 %; Neutrophils # 5.27 10^3/uL (1.8-7.7); Neutrophils % 67.8 %; Nucleated Red Blood Cells % 0 %; Platelet Count 480 10^3/cmm (157-399); Red Blood Count 4.94 10^6/uL (3.85-5.65); Red Cell Distribution Width 13.3 % (12.1-15.1); White Blood Count 7.77 10^3/uL (3.29-11.43)
[2023-12-13 15:28] LABS: Alanine Aminotransferase 13 U/L (0-41); Albumin Level 4.1 g/dL (3.5-5.2); Alkaline Phosphatase 110 U/L (40-130); Anion Gap 14.1 (5-19); Aspartate Amino Transferase 21 U/L (0-40); Blood Urea Nitrogen 14 mg/dL (8-23); Calcium 9.1 mg/dL (8.5-10.5); Carbon Dioxide 29 mmol/L (22-29); Chloride 100 mmol/L (98-107); Creatinine Clr Calc Pharmacy 83.0604; Globulin 3.3 g/dL (1.3-4.6); Glomerular Filtration Rate 83.9 mL/min (90-130); Glucose 109 mg/dL (65-115); Lactate Dehydrogenase 166 U/L (135-225); Osmolality Calculated 289 mOsm/kg (285-295); Potassium 4.1 mmol/L (3.5-5.1); Sodium 139 mmol/L (136-145); Total Bilirubin 0.4 mg/dL (0.15-1.2); Total Protein 7.4 g/dL (6.6-8.7)
--- NOTE | 2023-12-16 14:30 | PETR_ITS ---
PROCEDURE INFORMATION: Exam: PET/CT Skull Base to Mid-thigh Exam date and time: 12/16/2023 2:15 PM Age: 68 years old Clinical indication: Condition or disease; Primary cancer: Malignant neoplasm of vocal cord/glottis; Additional info: Metastatic head and neck cancer LABS AND CLINICAL REPORTS: Glucose: 80 mg/dl Treatment strategy for malignancy (PET staging): Initial Staging (PI) TECHNIQUE: Imaging protocol: Following at least four-hour fasting and following the injection of radiopharmaceutical, low dose CT images were obtained. Then, PET images were obtained. Attenuation corrected images were constructed using the CT scan. Fused images of PET and CT were reviewed. The standardized uptake values (SUV) reported below are maximum values within a region of interest, expressed in gm/ml. Exam includes orbital meatal line to mid-thigh. Radiopharmaceutical: 11.12 mCi F-18 FDG (Fluorodeoxyglucose), IV. Time of imaging post radiopharmaceutical administration: 1 hour Injection site: left ac COMPARISON: MRI brain 12/14/2023, CT neck w con* [id number] 01/20/2022 2:13 PM FINDINGS: Brain: Visualized brain has normal physiologic uptake. Pharynx: No abnormal uptake. Larynx: In the region of the left lateral aspect of the larynx, along the posterior aspect of the hyoid bone, left lateral aspect of the cricoid cartilage and medial to the sternocleidomastoid muscle, a region of asymmetric soft tissue density measures approximately 2.7 x [address] series 202, image 311, SUV max 26.6. This was not identified on the prior CT. Lungs, pleura and trachea: A solid left upper lobe mass measures 5.6 x 3.[address] series 202, image 261, SUV max 22.1. Heart: Normal physiologic uptake. Mediastinal space: No abnormal uptake. Liver: No abnormal uptake. Rounded and ovoid non radiotracer avid low-density structures within the liver are compatible with benign cysts or hemangiomas, for example in the lateral right liver lobe measuring 2.7 x [address] series 202, image 202. Gallbladder and biliary ducts: No abnormal uptake. Pancreas: No abnormal uptake. Spleen: No abnormal uptake. Adrenal glands: No abnormal uptake. Kidneys and ureters: No abnormal uptake. A non radiotracer avid low-density structure arising from the superior pole of the left kidney likely represents a benign cyst. Stomach and bowel: No abnormal uptake. There are colonic diverticula. Reproductive: Small foci of uptake along the posterior aspect of the prostate gland are greatest on the left, SUV max 4.6 on PET image 307. Vasculature: No abnormal uptake. Atherosclerotic changes are noted. Lymph nodes: The thoracic inlet, a left paratracheal 9 mm lymph node on CT image 293 is noted, SUV max 12.7. Additional mediastinal lymph nodes are radiotracer avid, for example in the aortopulmonary window measuring 1.9 x 1.4 cm on image 260, SUV max 19.0 measuring 1.4 cm in the anterior aortopulmonary window, SUV max 13.0. A left hilar lymph node measures 3.7 x 2.8 cm on image 250, SUV max 13.6. Skeleton: No abnormal uptake in the visualized axial and appendicular skeleton. Soft tissues: In the inferior neck, elevated uptake in the region of the sternocleidomastoid muscle is noted without a well-defined lesion on the CT images, SUV max 31.2. This region of uptake measures approximately 1.8 cm in diameter in the axial plane on PET series 301, image 98. METRICS: Mediastinal blood pool: SUV max 2.5, SUV mean 2.3 PET/PET skull to thigh INIT [id number] IMPRESSION: 1. A radiotracer avid mass in the region of the larynx on the left is noted lateral to the cricoid cartilage, compatible with malignancy. 2. A radiotracer avid focus within the inferior right sternocleidomastoid muscle is noted, compatible with malignancy. 3. Radiotracer avid mediastinal and left hilar lymph nodes are consistent with metastases. 4. A left upper lobe mass demonstrates elevated uptake, consistent with malignancy. 5. Mild uptake within the posterior prostate gland is noted. Assessment of the prostate gland is limited by PET-CT. Correlation with clinical findings/PSA levels is recommended. 6. Colonic diverticulosis. 7. Additional nonurgent findings as detailed above.
--- NOTE | 2023-12-21 08:59 | N.ONRAD NP_ITS ---
Radiation Oncology New Patient Visit Patient: Dudley Moses MR#: [id number] : 1955> Age: 68> Sex: Male> Dictated by: Dr. 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 Now with cervical ramón recurrence s/p LN biopsy 09/07/2023. 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 Possible solitary 5 mm left occipital brain metastasis seen on screening MRI 12/14/2023. Now s/p staging PET/CT here confirming above sites of disease 12/16/2023. Here to address combined chemo and regional radiation. Radiotherapy to date: Summary 67.5 Gy to glottis larynx completed here 08/2020. Chief Complaint / History of Present Illness: He has been followed closely since salvage partial laryngectomy. CT 08/30/2023 revealed left para glottic neck mass, level 4 lymph node and 4 cm CHAVA mass. US guided bx lf left neck mass revealed squamous cell carcinoma. P16 negative Bronchand bx 10/06/2023 also revealed squamous cell carcinoma. MRI brain here 12/14/2023 revealed 5 mm ring enhancing left occipital lesion likely metastatic in nature. PET/CT here 12/16/2023 revealed left paraglottic mass, right low neck mass just posterior to SCM muscle, small left supraclavicular adenopathy, mediastinal adenopathy, left hilar adenopathy and CHAVA mass. No distant visceral or osseous metastatic disease. Currently he has some swallowing difficulty with stable weight appetite and energy level. He is active on his property. He lives independently with his . He is a lifelong non-smoker. Former drinker. Ho QUEVEDO, N or V. No other sxs. Stable hoarse voice. Current Medications: AmLODIPine Besylate, astragalus Root, cholecalciferol, daily Multiple Vitamins, garlic, ginkgo Biloba Extract, glucosamine Chondroitin Joint, magnesium, otezla, oxyCODONE HCl. Allergies: No Known Allergies Medical History: Dactylitis of finger, psoriatic arthritis. Surgical History: Salvage partial laryngectomy. Family History: Father is at age 97. Mother is alive. Social History: Last screened on 07/14/2020 - Never smoked. Last screened on 07/14/2020 - Active drinker 3 drinks/day 7 days/week. Current Complaints / Review of Systems: . Vital Signs: Performed on 12/20/2023 12:49 PM BMI - 22.427 kg/m2, Height - 71 in, Weight - 160.8 lbs, Temperature - 96.7 f, Pulse - 115 /min (high), Respiration - 17 /min, O2 Sat - 97 %, Pain - 0, Fatigue - 0 and BP - 134/ 78 mm(hg). Physical Exam: Robust appearing. Hoarse but intelligible speech. Left neck mass 3 cm just lateral to thyroid cartilage. Right low neck mass. Supple skin over laryngeal neck region with some skin banding without telangectatic changes seen. Psoriatic skin changes over thumb and forearm. Arthritic joint changes in hands. No clubbing. Performance Status: ECOG 1 Pathology: Primary, c32.0 - malignant neoplasm of glottis, Diagnosed 06/25/2020 (active) stage ii, t2, n0, m0. Imaging: See HPI Impression: Neck recurrence of initial st II squamous cell carcinoma of the glottis larynx initially treated with radiation followed by salvage partial laryngectomy. 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 Likely solitary left occipital brain met, 5 mm from either lung or recurrent laryngeal carcinoma is asymptomatic. All neck and left chest disease can be covered in a rational field or rios of well planned radiation. Solitary brain lesion small and at the edge of what can be treated with SRS. Discussed in detail with Brittany Cheney, patient and . Plan to pursue combined neck and chest radiation with sensitizing chemo. Currently plan on 60 Gy in 30 fractions. Treatment planning will require fusion of PET/CT and IMRT dose optimization. There will be overlap in left neck with prior larynx treatment which does increase risk of localized skin fibrosis and scarring. Solitary brain lesion will be observed for now with a repeat MRI head in 2 to 3 months. If it progresses, then consider SRS. Signed by: 12/21/2023 8:57:21 AM <<Signature on File>> Time spent with patient: 60 minutes CPT Code: CPT Code:
== END 2023-12-22 23:59 | disposition home or self-care (01) ==
PROVIDERS: Internal Medicine Hematology & Oncology; PCP Family Medicine; Visit Provider Radiology Radiation Oncology
DX: C78.00 Secondary malignant neoplasm of unspecified lung; C32.0 Malignant neoplasm of glottis; Z51.0 Encounter for antineoplastic radiation therapy; C77.8 Secondary and unspecified malignant neoplasm of lymph nodes of multiple regions
CPT/HCPCS: 36415; 77334; 78815; 80053; 82378; 83615; 85025; 99204; 99205; A9552

== ENCOUNTER 2023-12-28 08:50 | Day surgery (SDC) | payer MEDICARE, OTHER, SELFPAY ==
[2023-12-28] VITALS (7 sets, daily range): BP systolic 117–133; BP diastolic 69–77; PULSE 80–98; RESP 16–18; TEMP 36.3–36.8; O2SAT 95–97; BMI 22.6
--- NOTE | 2023-12-28 08:49 | SC_ITS ---
WS: [id number] C-arm FL for CVA [id number] REASON FOR EXAM: port placement FINDINGS: Properly positioned right chest port with right internal jugular infusion catheter with the tip at th e caval atrial junction. SC/C-arm FL for CVA 71001 IMPRESSION: Properly positioned right chest port and infusion catheter as above.
[2023-12-28] MEDS: sodium chloride 0.9% 1,000 ML 30 ML IV (09:13)
--- NOTE | 2023-12-28 09:19 | W.PM.OPSUD ---
Surgery/Procedure H&P Update DATE OF PROCEDURE: December 28, 2023 DATE H&P PERFORMED: 12/22/23 H&P UPDATE INFORMATION: I have reviewed H&P completed within last 30 days, I have examined patient prior to procedure and No changes to prior documentation PLANNED PROCEDURE: Operation Date: 12/28/23 10:20 Proposed Procedures p Portacath Placement 15808, Z95.828, C78.00(Not Applicable) - Ricky Orellana MD
--- NOTE | 2023-12-28 09:57 | ANES.PREANE2 ---
Pre-Anesthetic Assessment Height/Weight: Height 1.8 m Weight 73.482 kg Temp Pulse Resp BP Pulse Ox O2 Del Method 97.9 F 98 18 133/77 97 Room Air 12/28/23 09:04 12/28/23 09:04 12/28/23 09:04 12/28/23 09:04 12/28/23 09:04 12/28/23 09:04 Operation Date: 12/28/23 10:20 Proposed Procedures p Portacath Placement 43174, Z95.828, C78.00(Not Applicable) - Ricky Orellana MD Familial anesthetic complications: None Was Beta Jerardo taken within 24 hours: N/A Was Clonidine taken within 24 hours: N/A Last intake: Intake Last Liquid Date 12/27/23 Last Liquid Time 22:00 Last Solid Date 12/27/23 Last Solid Time 18:30 Social No alcohol and No tobacco Exam alert, oriented x 3, clear to auscultation bilaterally and regular rate & rhythm Airway Dentition: full Comments: Comments: Laryngeal cancer s/p resection with recurrence - patient informed will perform light MAC, where intraop awareness can and may result, during stimulating portions of procedure to maintain spontaneous ventilation. CV/HEM Hypertension Anesthetic Plan ASA status: 4 Anesthesia: MAC Risk of > 500 ml blood loss (7ml/kg in children): No Medications/Allergies Home Medications Medication Instructions Recorded Confirmed Last Taken Type apremilast 30 mg tablet (Otezla) 30 mg PO BID 06/04/20 12/28/23 12/27/23 History triamcinolone acetonide 0.1 % 0.1 applic topical 2XD 12/13/23 12/28/23 12/27/23 History topical ointment prochlorperazine maleate 10 mg 10 mg PO Q4H PRN mild nausea #30 12/14/23 12/28/23 Unknown Rx tablet (Compazine) tabs amlodipine 5 mg tablet 5 mg PO DAILY #90 tabs 12/27/23 12/28/23 12/28/23 Rx Allergies Allergy/AdvReac Type Severity Reaction Status Date / Time No Known Allergies Allergy Verified 12/28/23 07:26 Current Medications Generic Name Dose Route Start Last Admin Trade Name Freq PRN Reason Stop Dose Admin Sodium Chloride 1,000 mls @ 30 mls/hr 12/28/23 09:00 12/28/23 09:13 Sodium Chloride 0.9% IV 12/29/23 08:59 30 mls/hr .Q24H ANAMARIA Administration PFSH Anesthesia Medical History Dactylitis of finger High risk medication use Hx of laryngeal cancer Immunization counseling Joint pain Plaque psoriasis Psoriatic arthritis Surgical History History of dental surgery History of ear, nose, and throat (ENT) surgery history of removal of lesion on vocal cord Family History Other Rheumatoid arthritis Denies family history of Diabetes Lupus CAD (coronary artery disease) Hyperlipidemia Chronic kidney disease (CKD) Lung disease Cancer Hypertension Stroke Social History Smoking and tobacco/nicotine status: never used tobacco/nicotine Alcohol intake: former Substance/Drug Use: never Data Anesthesia Cardiac Studies: No Data to Display
[2023-12-28] MEDS: ceFAZolin 2,000 mg SDV 2000 MG IVP (10:51)
[2023-12-28] MEDS: heparin, porcine 1,000 unit/mL INJ 10 mL 10000 UNIT IRRIGATION (11:15)
[2023-12-28] MEDS: BUPivacaine 0.25% INJ 10 mL INJECTION (11:26)
[2023-12-28] MEDS: lidocaine-epi 1% 20 mL INJ INJECTION (11:26)
--- NOTE | 2023-12-28 11:29 | P.OP_ITS ---
Date of Procedure: 12/28/2023 Surgeon: Dr. Orellana Shoe Parts Molder(s): N/A Procedure(s) performed: Port-A-Cath placement right internal jugular vein Findings of the procedure(s): Adequate positioning of the tip of catheter in atriocaval junction confirmed with intraoperative fluoroscopy. Vascular access of right internal jugular vein done with ultrasound. Estimated blood loss: 10 cc Specimen(s) removed: None Post-operative diagnosis: Laryngeal cancer Pathology: No specimen sent Implant(s): Port-A-Cath Anesthesia: MAC Complications: None Brief history/preop diagnosis: 68-year-old male who needed a port for chemotherapy. History of laryngeal cancer. Discussed risk and benefits and patient agreed to proceed. Full operative report: Patient was brought into the operating room and a timeout was carried out. Procedure was done under MAC. Patient was placed supine with the arms tucked and in Trendelenburg. Patient was prepped and draped in the usual sterile fashion. Using ultrasound guidance the right internal jugular vein was accessed. A guidewire was then placed down to the atriocaval junction using fluoroscopy. The finder needle was removed and the guidewire was secured. I then turned my attention to creating a pocket over the right chest. Make sure to locally infiltrated using plain lidocaine and bupivacaine at the site of the pocket and throughout the tunnel site. I confirmed adequate hemostasis at the pocket. I then proceeded to place the port that was already preassembled and flushed with heparinized saline and the chest pocket. I tunneled the cath eter from the chest to the neck at the site where I accessed the internal jugular vein. I measured and adjusted the length of the catheter so it would reach the atrial caval junction. At this point, I used a dilator to dilate the tract into the internal jugular vein using fluoroscopy. I removed the guidewire and proceeded to thread the central venous catheter through the introducer. In the process, I removed the sheath as a completely pushed the catheter into the internal jugular vein. I then confirmed adequate placement of the catheter by performing intraoperative interpretation of fluoroscopy. The tip of the catheter was confirmed to be placed in the atriocaval junction. There were no kinks noted throughout the trajectory of the catheter. I then proceeded to test the port and was satisfied with its functionality. I proceeded to flushed the catheter without any issues. I then hep-locked the port. Skin was closed using deep dermal 3-0 Vicryl, subcuticular 4-0 Monocryl, and Dermabond. Patient was then transferred to PACU without any complications. Condition: Stable Dispostion: Home
--- NOTE | 2023-12-28 12:30 | ANE.PACU2 ---
Inpatient post-anesthesia follow up: Airway intact: Yes Vital signs: Temperature 98.0 F Pulse Rate 80 Respiratory Rate 18 Blood Pressure 119/73 Pulse Oximetry 95 Oxygen Delivery Me thod Room Air Oxygen Flow Rate Fraction of Inspir ed Oxygen Hydration adequate: Yes Nausea and vomiting: No Pain level: 1 Mental status: Baseline
== END 2023-12-28 12:30 | disposition home or self-care (01) ==
PROVIDERS: PCP Family Medicine; Visit Provider Student in an Organized Health Care Education/Training Program
PROC: (CPT 36561; principal; 2023-12-28 10:10)
DX: C32.9 Malignant neoplasm of larynx, unspecified (principal); I10 Essential (primary) hypertension
CPT/HCPCS: 36561; 76000; 77001; 99215; C1788; J0690; J1644; J2250; J2704; J3490; J7030

== ENCOUNTER 2024-01-04 10:00 | Oncology outpatient (recurring) (ONCR) | payer MEDICARE, OTHER, SELFPAY ==
[2023-12-28 08:36] LABS: Basophils % 0.6 %; Eosinophils # 0.4 10^3/uL (0.0-0.8); Eosinophils % 5.1 %; Hematocrit 41.3 % (37-53); Lymphocytes # 1.3 10^3/uL (0.8-4.8); Lymphocytes % 18.3 %; Mean Corpuscular HGB Conc 33.2 g/dL (30-55); Mean Corpuscular Hemoglobin 27.9 pg (27-33); Mean Corpuscular Volume 84.1 fl (82-101); Mean Platelet Volume 8.2 fL (7.4-10.4); Monocytes # 0.5 10^3/uL (0.2-0.9); Monocytes % 7.4 %; Neutrophils # 4.83 10^3/uL (1.8-7.7); Neutrophils % 68.3 %; Nucleated Red Blood Cells % 0 %; Platelet Count 520 10^3/cmm (157-399); Red Blood Count 4.91 10^6/uL (3.85-5.65); Red Cell Distribution Width 13.2 % (12.1-15.1); White Blood Count 7.06 10^3/uL (3.29-11.43)
[2023-12-28 09:02] LABS: Alanine Aminotransferase 13 U/L (0-41); Albumin Level 4.2 g/dL (3.5-5.2); Alkaline Phosphatase 115 U/L (40-130); Anion Gap 12.2 (5-19); Aspartate Amino Transferase 18 U/L (0-40); Blood Urea Nitrogen 11 mg/dL (8-23); Carbon Dioxide 27 mmol/L (22-29); Chloride 101 mmol/L (98-107); Globulin 2.7 g/dL (1.3-4.6); Glomerular Filtration Rate 112.1 mL/min (90-130); Glucose 99 mg/dL (65-115); Osmolality Calculated 281 mOsm/kg (285-295); Potassium 4.2 mmol/L (3.5-5.1); Sodium 136 mmol/L (136-145); Total Bilirubin 0.4 mg/dL (0.15-1.2); Total Protein 6.9 g/dL (6.6-8.7)
[2023-12-28] MEDS: sodium chloride 0.9% 250 ML 75 ML IV (13:05)
[2023-12-28] MEDS: dexamethasone 4 mg/mL INJ 5 mL 12 MG IVP (13:06)
[2023-12-28] MEDS: ondansetron 2 mg/ML SDV 2 mL 8 MG IVP (13:08)
[2023-12-28 13:11] VITALS: BP 126/77; PULSE 98; RESP 17; TEMP 37.1; O2SAT 92
[2023-12-28] MEDS: CARBOplatin 190 MG in sodium chloride 0.9% 500 ML 519 MG IV (13:44)
[2023-12-28 15:00] VITALS: BP 124/79; PULSE 80; RESP 16; TEMP 36.6; O2SAT 95
[2024-01-04 10:16] LABS: Basophils % 0.5 %; Eosinophils # 0.2 10^3/uL (0.0-0.8); Lymphocytes # 0.7 10^3/uL (0.8-4.8); Mean Corpuscular HGB Conc 32.1 g/dL (30-55); Mean Corpuscular Hemoglobin 27.1 pg (27-33); Mean Corpuscular Volume 84.4 fl (82-101); Mean Platelet Volume 8.1 fL (7.4-10.4); Monocytes # 0.6 10^3/uL (0.2-0.9); Monocytes % 8.4 %; Neutrophils # 5.08 10^3/uL (1.8-7.7); Neutrophils % 76.6 %; Nucleated Red Blood Cells % 0 %; Platelet Count 489 10^3/cmm (157-399); Red Cell Distribution Width 13.2 % (12.1-15.1); White Blood Count 6.63 10^3/uL (3.29-11.43)
[2024-01-04 10:30] LABS: Alanine Aminotransferase 14 U/L (0-41); Albumin Level 3.9 g/dL (3.5-5.2); Alkaline Phosphatase 104 U/L (40-130); Anion Gap 12.8 (5-19); Aspartate Amino Transferase 18 U/L (0-40); Blood Urea Nitrogen 13 mg/dL (8-23); Calcium 8.8 mg/dL (8.5-10.5); Carbon Dioxide 27 mmol/L (22-29); Chloride 99 mmol/L (98-107); Globulin 3.1 g/dL (1.3-4.6); Glomerular Filtration Rate 112.1 mL/min (90-130); Glucose 116 mg/dL (65-115); Osmolality Calculated 281 mOsm/kg (285-295); Potassium 3.8 mmol/L (3.5-5.1); Sodium 135 mmol/L (136-145); Total Bilirubin 0.4 mg/dL (0.15-1.2)
--- NOTE | 2024-01-04 10:42 | ONCRAD TMN_ITS ---
Radiation Oncology Weekly Treatment Management Patient: Dudley Moses MR#: [id number] : 1955 Attending Physician: Dr. 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 ID: [id number], Energy: 6X, Dose/Fx (cGy): 200, #Fx: / 30, Dose Correction (cGy): 0, Total Dose Delivered (cGy): 1,200, Start Date: 12/28/2023, Elapsed Days: 7 Reason for visit: The patient is being seen today as part of their regularly scheduled weekly on treatment visits to assess for acute toxicities from radiotherapy. Review of Systems: Patient has not noticed any changes as yet. 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 Physical Exam: No changes on exam. Skin is without changes. Imaging: Radiation therapy imaging related to accurate target localization (i.e. KV, MV and CBCT) was reviewed. Appropriate changes, if any, were made to ensure treatment accuracy. Plan: He is doing well so far. He is due for his second round of chemotherapy today. Will continue with his treatments as planned. Signed by: Dr. Whitney Rodriguez 01/04/2024 10:41:21 AM
[2024-01-04] MEDS: sodium chloride 0.9% 250 ML 75 ML IV (13:44)
[2024-01-04] MEDS: dexamethasone 4 mg/mL INJ 5 mL 12 MG IVP (13:46)
[2024-01-04] MEDS: ondansetron 2 mg/ML SDV 2 mL 8 MG IVP (13:50)
[2024-01-04] MEDS: CARBOplatin 270 MG in sodium chloride 0.9% 500 ML 527 MG IV (14:39)
[2024-01-04 15:50] VITALS: BP 135/83; PULSE 83; RESP 17; TEMP 36.2; O2SAT 98
== END 2024-01-04 23:59 | disposition home or self-care (01) ==
PROVIDERS: Nurse Practitioner Family; PCP Family Medicine; Visit Provider Radiology Radiation Oncology
DX: C32.0 Malignant neoplasm of glottis; Z53.9 Procedure and treatment not carried out, unspecified reason; Z51.0 Encounter for antineoplastic radiation therapy; Z51.11 Encounter for antineoplastic chemotherapy; C34.12 Malignant neoplasm of upper lobe, left bronchus or lung; C77.0 Secondary and unspecified malignant neoplasm of lymph nodes of head, face and neck; Z79.52 Long term (current) use of systemic steroids; Z79.899 Other long term (current) drug therapy; C79.31 Secondary malignant neoplasm of brain
CPT/HCPCS: 36415; 77300; 77301; 77338; 77386; 80053; 85025; 96375; 96413; 99024; 99213; J1100; J2405; J7040; J7050; J9045

== ENCOUNTER → 2024-01-09 11:27 | Outpatient (BNVA) | payer MEDICARE, OTHER, SELFPAY | PROVIDERS: PCP Family Medicine; Visit Provider Student in an Organized Health Care Education/Training Program | DX: C32.0 Malignant neoplasm of glottis (principal) | CPT/HCPCS: 99024 ==

== ENCOUNTER 2024-01-18 11:00 | Oncology outpatient (recurring) (ONCR) | payer MEDICARE, OTHER, SELFPAY ==
--- NOTE | 2024-01-09 15:39 | ONCRAD TMN_ITS ---
Radiation Oncology Weekly Treatment Management Patient: Josué Torres MR#: [id number] : 1955> Attending Physician: Dr. 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 ID: [id number], Energy: 6X, Dose/Fx (cGy): 200, #Fx: , Dose Correction (cGy): 0, Total Dose Delivered (cGy): 1,800, Start Date: 12/28/2023, Elapsed Days: 12 Reason for visit: The patient is being seen today as part of their regularly scheduled weekly on treatment visits to assess for acute toxicities from radiotherapy. Review of Systems: Patient has noticed no changes. He has felt like there is been a little bit more discomfort through where he knows all the cancer is located. Vital Signs: Performed on 01/09/2024 2:24 PM BMI - 21.869 kg/m2, Height - 71 in, Weight - 156.8 lbs, Temperature - 97 f, Pulse - 103 /min (high), Respiration - 18 /min, O2 Sat - 94 % (low), Pain - 0, Fatigue - 5 and BP - 120/ 75 mm(hg). Physical Exam: No changes on examination Imaging: Radiation therapy imaging related to accurate target localization (i.e. KV, MV and CBCT) was reviewed. Appropriate changes, if any, were made to ensure treatment accuracy. Plan: Will continue with his treatments. I ask him to use his pain medicine as needed. Signed by: Dr. Whitney Rodriguez 01/09/2024 3:38:06 PM
[2024-01-11 11:27] LABS: Basophils % 0.5 %; Eosinophils # 0.2 10^3/uL (0.0-0.8); Hematocrit 37.1 % (37-53); Lymphocytes # 0.5 10^3/uL (0.8-4.8); Lymphocytes % 6.6 %; Mean Corpuscular HGB Conc 32.9 g/dL (30-55); Mean Corpuscular Hemoglobin 27.9 pg (27-33); Mean Corpuscular Volume 84.7 fl (82-101); Monocytes # 0.5 10^3/uL (0.2-0.9); Monocytes % 6.8 %; Neutrophils # 6.52 10^3/uL (1.8-7.7); Neutrophils % 83.5 %; Nucleated Red Blood Cells % 0 %; Platelet Count 390 10^3/cmm (157-399); Red Blood Count 4.38 10^6/uL (3.85-5.65); Red Cell Distribution Width 13.6 % (12.1-15.1); White Blood Count 7.82 10^3/uL (3.29-11.43)
[2024-01-11 11:44] LABS: Alanine Aminotransferase 13 U/L (0-41); Albumin Level 3.9 g/dL (3.5-5.2); Alkaline Phosphatase 103 U/L (40-130); Anion Gap 14.3 (5-19); Aspartate Amino Transferase 18 U/L (0-40); Blood Urea Nitrogen 18 mg/dL (8-23); Calcium 9.2 mg/dL (8.5-10.5); Carbon Dioxide 27 mmol/L (22-29); Chloride 101 mmol/L (98-107); Globulin 3.1 g/dL (1.3-4.6); Glomerular Filtration Rate 112.1 mL/min (90-130); Glucose 114 mg/dL (65-115); Magnesium 2.1 mg/dL (1.7-2.3); Osmolality Calculated 289 mOsm/kg (285-295); Potassium 4.3 mmol/L (3.5-5.1); Sodium 138 mmol/L (136-145); Total Bilirubin 0.5 mg/dL (0.15-1.2)
[2024-01-11] MEDS: sodium chloride 0.9% 250 ML 75 ML IV (13:09)
[2024-01-11] MEDS: dexamethasone 4 mg/mL INJ 5 mL 12 MG IVP (13:09)
[2024-01-11] MEDS: ondansetron 2 mg/ML SDV 2 mL 8 MG IVP (13:12)
[2024-01-11 13:16] VITALS: BP 113/72; PULSE 97; RESP 17; TEMP 36.6; O2SAT 97
[2024-01-11] MEDS: CARBOplatin 250 MG in sodium chloride 0.9% 500 ML 525 MG IV (13:48)
[2024-01-11 15:01] VITALS: BP 129/72; PULSE 93; RESP 17; TEMP 36.6; O2SAT 94
--- NOTE | 2024-01-17 15:07 | ONCRAD TMN_ITS ---
Radiation Oncology Weekly Treatment Management Patient: Dudley Moses MR#: [id number] : 1955 Attending Physician: Dr. 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 ID: [id number], Energy: 6X, Dose/Fx (cGy): 200, #Fx: 15 / 30, Dose Correction (cGy): 0, Total Dose Delivered (cGy): 3,000, Start Date: 12/28/2023, Elapsed Days: 20 Reason for visit: The patient is being seen today as part of their regularly scheduled weekly on treatment visits to assess for acute toxicities from radiotherapy. Review of Systems: Patient is actually feeling quite well today. He says the only problems he is at is that he has had a couple days of severe fatigue over the last week. Vital Signs: Performed on 01/17/2024 2:33 PM BMI - 21.814 kg/m2, Height - 71 in, Weight - 156.4 lbs, Temperature - 97.4 f, Pulse - 104 /min (high), Respiration - 17 /min, O2 Sat - 96 %, Pain - 0, Fatigue - 0 and BP - 123/ 73 mm(hg). Physical Exam: No changes on exam Imaging: Radiation therapy imaging related to accurate target localization (i.e. KV, MV and CBCT) was reviewed. Appropriate changes, if any, were made to ensure treatment accuracy. Plan: Will continue with his treatments as planned. I encouraged him to rest when he feels drained. Signed by: Dr. Whitney Rodriguez 01/17/2024 3:05:49 PM
[2024-01-18 11:02] LABS: Basophils % 0.8 %; Eosinophils # 0.2 10^3/uL (0.0-0.8); Hematocrit 36.5 % (37-53); Lymphocytes # 0.3 10^3/uL (0.8-4.8); Lymphocytes % 6.5 %; Mean Corpuscular HGB Conc 32.6 g/dL (30-55); Mean Corpuscular Hemoglobin 27.7 pg (27-33); Mean Corpuscular Volume 84.9 fl (82-101); Mean Platelet Volume 7.9 fL (7.4-10.4); Monocytes # 0.5 10^3/uL (0.2-0.9); Monocytes % 10.3 %; Neutrophils # 3.98 10^3/uL (1.8-7.7); Neutrophils % 78.8 %; Nucleated Red Blood Cells % 0 %; Platelet Count 268 10^3/cmm (157-399); Red Cell Distribution Width 13.9 % (12.1-15.1); White Blood Count 5.05 10^3/uL (3.29-11.43)
[2024-01-18 11:19] LABS: Alanine Aminotransferase 13 U/L (0-41); Albumin Level 3.9 g/dL (3.5-5.2); Alkaline Phosphatase 94 U/L (40-130); Anion Gap 14.2 (5-19); Aspartate Amino Transferase 18 U/L (0-40); Blood Urea Nitrogen 18 mg/dL (8-23); Calcium 9.5 mg/dL (8.5-10.5); Carbon Dioxide 28 mmol/L (22-29); Chloride 99 mmol/L (98-107); Globulin 2.7 g/dL (1.3-4.6); Glomerular Filtration Rate 112.1 mL/min (90-130); Glucose 109 mg/dL (65-115); Osmolality Calculated 286 mOsm/kg (285-295); Potassium 4.2 mmol/L (3.5-5.1); Sodium 137 mmol/L (136-145); Total Bilirubin 0.4 mg/dL (0.15-1.2); Total Protein 6.6 g/dL (6.6-8.7)
[2024-01-18] MEDS: sodium chloride 0.9% 250 ML 75 ML IV (13:56)
[2024-01-18] MEDS: dexamethasone 4 mg/mL INJ 5 mL 12 MG IVP (13:58)
[2024-01-18] MEDS: ondansetron 2 mg/ML SDV 2 mL 8 MG IVP (14:03)
[2024-01-18] MEDS: CARBOplatin 250 MG in sodium chloride 0.9% 500 ML 525 MG IV (14:51)
[2024-01-18 16:00] VITALS: BP 116/74; PULSE 83; TEMP 36.3; O2SAT 95
== END 2024-01-21 23:59 | disposition home or self-care (01) ==
PROVIDERS: Internal Medicine; PCP Family Medicine; Visit Provider Radiology Radiation Oncology
DX: Z51.0 Encounter for antineoplastic radiation therapy; C78.00 Secondary malignant neoplasm of unspecified lung; Z51.11 Encounter for antineoplastic chemotherapy; Z53.9 Procedure and treatment not carried out, unspecified reason; C32.0 Malignant neoplasm of glottis; Z79.899 Other long term (current) drug therapy; Z79.52 Long term (current) use of systemic steroids
CPT/HCPCS: 77336; 77386; 80053; 83735; 85025; 96360; 96361; 96375; 96413; 99024; 99214; J1100; J2405; J7040; J7050; J9045

== ENCOUNTER 2024-02-10 08:00 | Oncology outpatient (recurring) (ONCR) | payer MEDICARE, OTHER, SELFPAY ==
--- NOTE | 2024-01-24 15:50 | ONCRAD TMN_ITS ---
Radiation Oncology Weekly Treatment Management Patient: Josué Torres MR#: [id number] : 1955> Attending Physician: Dr. 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 ID: [id number], Energy: 6X, Dose/Fx (cGy): 200, #Fx: 18 / 30, Dose Correction (cGy): 0, Total Dose Delivered (cGy): 3,600, Start Date: 12/28/2023, Elapsed Days: 27 Reason for visit: The patient is being seen today as part of their regularly scheduled weekly on treatment visits to assess for acute toxicities from radiotherapy. Review of Systems: Patient continues to have some fatigue and nausea which is controlled with medication Vital Signs: Performed on 01/24/2024 2:26 PM BMI - 21.618 kg/m2, Height - 71 in, Weight - 155 lbs, Temperature - 96.9 f, Pulse - 102 /min (high), Respiration - 18 /min, O2 Sat - 96 %, Pain - 0, Fatigue - 5 and BP - 124/ 74 mm(hg). Physical Exam: His skin on examination in the upper part of the field is mildly erythematous and dry Imaging: Radiation therapy imaging related to accurate target localization (i.e. KV, MV and CBCT) was reviewed. Appropriate changes, if any, were made to ensure treatment accuracy. Plan: Avastin go ahead and put his cream on twice a day. Will otherwise continue with his treatments as planned Signed by: Dr. Whitney Rodriguez 01/24/2024 3:49:39 PM
[2024-01-25 11:26] LABS: Basophils % 0.6 %; Eosinophils # 0.1 10^3/uL (0.0-0.8); Hematocrit 36.1 % (37-53); Lymphocytes # 0.3 10^3/uL (0.8-4.8); Mean Corpuscular HGB Conc 32.4 g/dL (30-55); Mean Corpuscular Volume 86.4 fl (82-101); Mean Platelet Volume 7.6 fL (7.4-10.4); Monocytes # 0.4 10^3/uL (0.2-0.9); Monocytes % 7.7 %; Neutrophils # 3.84 10^3/uL (1.8-7.7); Neutrophils % 82.5 %; Nucleated Red Blood Cells % 0 %; Platelet Count 156 10^3/cmm (157-399); Red Blood Count 4.18 10^6/uL (3.85-5.65); Red Cell Distribution Width 14.6 % (12.1-15.1); White Blood Count 4.66 10^3/uL (3.29-11.43)
[2024-01-25 11:47] LABS: Alanine Aminotransferase 13 U/L (0-41); Albumin Level 3.8 g/dL (3.5-5.2); Alkaline Phosphatase 94 U/L (40-130); Anion Gap 14.1 (5-19); Aspartate Amino Transferase 17 U/L (0-40); Blood Urea Nitrogen 17 mg/dL (8-23); Calcium 8.9 mg/dL (8.5-10.5); Carbon Dioxide 26 mmol/L (22-29); Chloride 99 mmol/L (98-107); Creatinine Clr Calc Pharmacy 91.4585; Glucose 110 mg/dL (65-115); Osmolality Calculated 282 mOsm/kg (285-295); Potassium 4.1 mmol/L (3.5-5.1); Sodium 135 mmol/L (136-145); Total Bilirubin 0.4 mg/dL (0.15-1.2); Total Protein 6.8 g/dL (6.6-8.7)
[2024-01-25] MEDS: sodium chloride 0.9% 250 ML 75 ML IV (13:28)
[2024-01-25] MEDS: dexamethasone 4 mg/mL INJ 5 mL 12 MG IVP (13:29)
[2024-01-25] MEDS: ondansetron 2 mg/ML SDV 2 mL 8 MG IVP (13:33)
[2024-01-25] MEDS: CARBOplatin 280 MG in sodium chloride 0.9% 500 ML 528 MG IV (14:07)
[2024-01-25 15:14] VITALS: BP 111/70; PULSE 72; RESP 16; TEMP 36.1; O2SAT 98
--- NOTE | 2024-01-31 14:56 | ONCRAD TMN_ITS ---
Radiation Oncology Weekly Treatment Management Patient: Dudley Moses MR#: [id number] : 1955 Attending Physician: Dr. 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 ID: [id number], Energy: 6X, Dose/Fx (cGy): 200, #Fx: / 30, Dose Correction (cGy): 0, Total Dose Delivered (cGy): 4,600, Start Date: 12/28/2023, Elapsed Days: 34 Reason for visit: The patient is being seen today as part of their regularly scheduled weekly on treatment visits to assess for acute toxicities from radiotherapy. Review of Systems: Patient is somewhat fatigued this week Vital Signs: Performed on 01/31/2024 2:34 PM BMI - 21.284 kg/m2, Height - 71 in, Weight - 152.6 lbs, Temperature - 96.6 f, Pulse - 111 /min (high), Respiration - 16 /min, O2 Sat - 96 %, Pain - 0, Fatigue - 5 and BP - 112/ 67 mm(hg). Physical Exam: On exam his skin is mildly hyperpigmented Imaging: Radiation therapy imaging related to accurate target localization (i.e. KV, MV and CBCT) was reviewed. Appropriate changes, if any, were made to ensure treatment accuracy. Plan: Will continue with his treatments as planned. He has 7 more treatments and 2 more chemotherapies and then he will be starting Keytruda. Signed by: Dr. Whitney Rodriguez 01/31/2024 2:55:17 PM
[2024-02-01 11:12] LABS: Basophils % 0.7 %; Eosinophils # 0.1 10^3/uL (0.0-0.8); Hematocrit 34.7 % (37-53); Lymphocytes # 0.2 10^3/uL (0.8-4.8); Lymphocytes % 8.1 %; Mean Corpuscular HGB Conc 32.6 g/dL (30-55); Mean Corpuscular Hemoglobin 27.6 pg (27-33); Mean Corpuscular Volume 84.8 fl (82-101); Mean Platelet Volume 7.6 fL (7.4-10.4); Monocytes # 0.2 10^3/uL (0.2-0.9); Monocytes % 5.7 %; Neutrophils # 2.41 10^3/uL (1.8-7.7); Neutrophils % 81.2 %; Nucleated Red Blood Cells % 0 %; Platelet Count 161 10^3/cmm (157-399); Red Blood Count 4.09 10^6/uL (3.85-5.65); Red Cell Distribution Width 14.8 % (12.1-15.1); White Blood Count 2.97 10^3/uL (3.29-11.43)
[2024-02-01 11:30] LABS: Alanine Aminotransferase 13 U/L (0-41); Albumin Level 3.8 g/dL (3.5-5.2); Alkaline Phosphatase 91 U/L (40-130); Anion Gap 13.9 (5-19); Aspartate Amino Transferase 17 U/L (0-40); Blood Urea Nitrogen 18 mg/dL (8-23); Calcium 9.3 mg/dL (8.5-10.5); Carbon Dioxide 27 mmol/L (22-29); Chloride 100 mmol/L (98-107); Creatinine Clr Calc Pharmacy 91.4585; Globulin 3.2 g/dL (1.3-4.6); Glomerular Filtration Rate 112.1 mL/min (90-130); Glucose 104 mg/dL (65-115); Osmolality Calculated 286 mOsm/kg (285-295); Potassium 3.9 mmol/L (3.5-5.1); Sodium 137 mmol/L (136-145); Total Bilirubin 0.6 mg/dL (0.15-1.2)
[2024-02-01] MEDS: sodium chloride 0.9% 250 ML 75 ML IV (12:41)
[2024-02-01] MEDS: dexamethasone 4 mg/mL INJ 5 mL 12 MG IVP (12:44)
[2024-02-01] MEDS: ondansetron 2 mg/ML SDV 2 mL 8 MG IVP (12:49)
[2024-02-01] MEDS: CARBOplatin 250 MG in sodium chloride 0.9% 500 ML 525 MG IV (13:13)
[2024-02-01 14:23] VITALS: BP 112/71; PULSE 90; RESP 16; TEMP 36.6; O2SAT 93
--- NOTE | 2024-02-07 08:11 | ONCRAD TMN_ITS ---
Radiation Oncology Weekly Treatment Management Patient: Josué Torres MR#: [id number] : 1955> Attending Physician: Dr. 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 ID: [id number], Energy: 6X, Dose/Fx (cGy): 200, #Fx: / 30, Dose Correction (cGy): 0, Total Dose Delivered (cGy): 5,200, Start Date: 12/28/2023, Elapsed Days: 37 Reason for visit: The patient is being seen today as part of their regularly scheduled weekly on treatment visits to assess for acute toxicities from radiotherapy. Review of Systems: Patient has noticed over the last 48 hours that his throat has become increasingly sore. He is really not able to eat much at this point. He is having some difficulty with liquids. Vital Signs: Performed on 02/06/2024 6:20 PM BMI - 21.032 kg/m2, Height - 71 in, Weight - 150.8 lbs, Temperature - 97.3 f, Pulse - 104 /min (high), Respiration - 18 /min, O2 Sat - 96 %, Pain - 7, Fatigue - 0 and BP - 106/ 66 mm(hg). Physical Exam: On exam his oral cavity is without changes. Externally his skin is mildly hyperpigmented. The area where he is most sore is the left lateral side of his throat. Imaging: Radiation therapy imaging related to accurate target localization (i.e. KV, MV and CBCT) was reviewed. Appropriate changes, if any, were made to ensure treatment accuracy. Plan: We talked today about making sure he does not get dehydrated. I offered him fluids which unfortunately we cannot do at the moment because her power is down. We will see if we can get him fluids tomorrow if he should choose to except those. In the meantime we talked about increasing his pain medicine and I have sent a prescription for the viscous lidocaine for him to use in the interim and reviewed the use of this to keep from getting dehydrated. I will check with him again tomorrow. Signed by: Dr. Whitney Rodriguez 02/07/2024 8:10:13 AM
[2024-02-08 07:45] LABS: Basophils % 0.4 %; Eosinophils # 0.1 10^3/uL (0.0-0.8); Eosinophils % 3.6 %; Hematocrit 33.5 % (37-53); Lymphocytes # 0.2 10^3/uL (0.8-4.8); Lymphocytes % 7.1 %; Mean Corpuscular HGB Conc 32.8 g/dL (30-55); Mean Corpuscular Volume 85.2 fl (82-101); Mean Platelet Volume 8.2 fL (7.4-10.4); Monocytes # 0.2 10^3/uL (0.2-0.9); Monocytes % 6.7 %; Neutrophils # 2.06 10^3/uL (1.8-7.7); Neutrophils % 81.4 %; Nucleated Red Blood Cells % 0 %; Platelet Count 193 10^3/cmm (157-399); Red Blood Count 3.93 10^6/uL (3.85-5.65); Red Cell Distribution Width 15.4 % (12.1-15.1); White Blood Count 2.53 10^3/uL (3.29-11.43)
[2024-02-08 08:03] LABS: Anion Gap 14.8 (5-19); Blood Urea Nitrogen 19 mg/dL (8-23); Carbon Dioxide 26 mmol/L (22-29); Chloride 100 mmol/L (98-107); Glomerular Filtration Rate 112.1 mL/min (90-130); Potassium 3.8 mmol/L (3.5-5.1); Sodium 137 mmol/L (136-145)
[2024-02-08 08:04] LABS: Alanine Aminotransferase 14 U/L (0-41); Albumin Level 3.7 g/dL (3.5-5.2); Alkaline Phosphatase 100 U/L (40-130); Aspartate Amino Transferase 17 U/L (0-40); Creatinine Clr Calc Pharmacy 90.2675; Globulin 3.1 g/dL (1.3-4.6); Glucose 103 mg/dL (65-115); Osmolality Calculated 287 mOsm/kg (285-295); Total Bilirubin 0.7 mg/dL (0.15-1.2); Total Protein 6.8 g/dL (6.6-8.7)
[2024-02-08 09:10] VITALS: BP 103/66; PULSE 104; RESP 15; TEMP 37; O2SAT 96
[2024-02-08] MEDS: dexamethasone 4 mg/mL INJ 5 mL 12 MG IVP (09:24)
[2024-02-08] MEDS: ondansetron 2 mg/ML SDV 2 mL 8 MG IVP (09:30)
[2024-02-08] MEDS: sodium chloride 0.9% 1,000 ML 500 ML IV (09:30)
[2024-02-08] MEDS: CARBOplatin 240 MG in sodium chloride 0.9% 500 ML 524 MG IV (10:44)
[2024-02-08] MEDS: sodium chloride 0.9% 250 ML 50 ML IV (10:44)
[2024-02-08 11:46] VITALS: BP 117/64; PULSE 85; O2SAT 97
[2024-02-10 08:45] VITALS: BP 110/73; PULSE 94; RESP 17; TEMP 36.2; O2SAT 97
[2024-02-10] MEDS: sodium chloride 0.9% 1,000 ML 999 ML IV (09:18)
[2024-02-10 10:40] VITALS: BP 124/78; PULSE 78; RESP 16; TEMP 36.9; O2SAT 96
--- NOTE | 2024-02-13 09:05 | N.ONRD TS_ITS ---
Radiation Oncology Treatment Summary Patient: Josué>Brian MR#: [id number] : 1955> Age: 68> Sex: Male Dictated by: Dr. 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 ID: [id number], Energy: 6X, Dose/Fx (cGy): 225, #Fx: 30 / 30, Dose Correction (cGy): 0, Total Dose Delivered (cGy): 6,750, Start Date: 07/14/2020, End Date: 09/01/2020, Elapsed Days: 49 Treatment Site: Lung HN 60Gy, Ref. ID: [id number], Energy: 6X, Dose/Fx (cGy): 200, #Fx: 30 / 30, Dose Correction (cGy): 0, Total Dose Delivered (cGy): 6,000, Start Date: 12/28/2023, End Date: 02/10/2024, Elapsed Days: 44 Clinical Summary: The patient tolerated RT well. He developed sore throat and difficulty swallowing in the last week of his treatment. He otherwise had minimal skin changes. Plan: End of treatment today. Continue on the above medication until the skin reaction resolves. Follow up in one month. Signed by: Dr. Whitney Rodriguez>02/13/2024 9:03:31 AM <<Signature on File>>
== END 2024-02-10 23:59 | disposition home or self-care (01) ==
PROVIDERS: Internal Medicine; PCP Family Medicine; Visit Provider Radiology Radiation Oncology
DX: C32.0 Malignant neoplasm of glottis; Z51.0 Encounter for antineoplastic radiation therapy; C34.12 Malignant neoplasm of upper lobe, left bronchus or lung; C77.0 Secondary and unspecified malignant neoplasm of lymph nodes of head, face and neck; Z53.9 Procedure and treatment not carried out, unspecified reason; Z79.899 Other long term (current) drug therapy
CPT/HCPCS: 77336; 77386; 80053; 85025; 96360; 96361; 96375; 96413; 99024; 99214; J1100; J2405; J7030; J7040; J7050; J9045

== ENCOUNTER 2024-02-16 11:21 | Oncology outpatient (recurring) (ONCR) | payer MEDICARE, OTHER, SELFPAY ==
[2024-02-16 12:53] LABS: Basophils % 0.7 %; Eosinophils # 0.1 10^3/uL (0.0-0.8); Eosinophils % 3.6 %; Hematocrit 31.3 % (37-53); Lymphocytes # 0.2 10^3/uL (0.8-4.8); Lymphocytes % 12.2 %; Mean Corpuscular HGB Conc 32.9 g/dL (30-55); Mean Corpuscular Hemoglobin 28.5 pg (27-33); Mean Corpuscular Volume 86.7 fl (82-101); Monocytes # 0.2 10^3/uL (0.2-0.9); Monocytes % 11.5 %; Nucleated Red Blood Cells % 0 %; Platelet Count 205 10^3/cmm (157-399); Red Blood Count 3.61 10^6/uL (3.85-5.65); Red Cell Distribution Width 16.3 % (12.1-15.1); White Blood Count 1.39 10^3/uL (3.29-11.43)
[2024-02-16 13:19] LABS: Alanine Aminotransferase 13 U/L (0-41); Albumin Level 3.6 g/dL (3.5-5.2); Alkaline Phosphatase 79 U/L (40-130); Anion Gap 12.6 (5-19); Aspartate Amino Transferase 17 U/L (0-40); Blood Urea Nitrogen 17 mg/dL (8-23); Calcium 8.9 mg/dL (8.5-10.5); Carbon Dioxide 28 mmol/L (22-29); Chloride 100 mmol/L (98-107); Creatinine Clr Calc Pharmacy 89.8425; Globulin 2.9 g/dL (1.3-4.6); Glucose 125 mg/dL (65-115); Lactate Dehydrogenase 131 U/L (135-225); Magnesium 1.8 mg/dL (1.7-2.3); Osmolality Calculated 287 mOsm/kg (285-295); Potassium 3.6 mmol/L (3.5-5.1); Sodium 137 mmol/L (136-145); Total Bilirubin 0.4 mg/dL (0.15-1.2); Total Protein 6.5 g/dL (6.6-8.7)
== END 2024-02-21 23:59 | disposition home or self-care (01) ==
PROVIDERS: Internal Medicine; PCP Family Medicine; Visit Provider Radiology Radiation Oncology
DX: C78.00 Secondary malignant neoplasm of unspecified lung; C32.0 Malignant neoplasm of glottis; Z51.0 Encounter for antineoplastic radiation therapy; C34.12 Malignant neoplasm of upper lobe, left bronchus or lung; C77.0 Secondary and unspecified malignant neoplasm of lymph nodes of head, face and neck; C78.02 Secondary malignant neoplasm of left lung; C79.31 Secondary malignant neoplasm of brain; R13.19 Other dysphagia; Z79.899 Other long term (current) drug therapy; Z79.52 Long term (current) use of systemic steroids
CPT/HCPCS: 36591; 77336; 80053; 83615; 83735; 85025; 99214

== ENCOUNTER 2024-02-23 08:40 | Oncology outpatient (recurring) (ONCR) | payer MEDICARE, OTHER, SELFPAY ==
[2024-02-23 09:43] LABS: Basophils % 1.1 %; Eosinophils # 0.1 10^3/uL (0.0-0.8); Eosinophils % 2.7 %; Hematocrit 32.6 % (37-53); Lymphocytes # 0.3 10^3/uL (0.8-4.8); Lymphocytes % 13.9 %; Mean Corpuscular HGB Conc 32.5 g/dL (30-55); Mean Corpuscular Hemoglobin 28.6 pg (27-33); Mean Corpuscular Volume 87.9 fl (82-101); Mean Platelet Volume 7.8 fL (7.4-10.4); Monocytes # 0.3 10^3/uL (0.2-0.9); Monocytes % 17.6 %; Neutrophils % 64.2 %; Nucleated Red Blood Cells % 0 %; Platelet Count 272 10^3/cmm (157-399); Red Blood Count 3.71 10^6/uL (3.85-5.65); Red Cell Distribution Width 17.6 % (12.1-15.1); White Blood Count 1.87 10^3/uL (3.29-11.43)
[2024-02-23 10:03] LABS: Alanine Aminotransferase 11 U/L (0-41); Albumin Level 3.7 g/dL (3.5-5.2); Alkaline Phosphatase 82 U/L (40-130); Anion Gap 13.7 (5-19); Aspartate Amino Transferase 15 U/L (0-40); Blood Urea Nitrogen 14 mg/dL (8-23); Carbon Dioxide 28 mmol/L (22-29); Chloride 101 mmol/L (98-107); Glomerular Filtration Rate 112.1 mL/min (90-130); Glucose 117 mg/dL (65-115); Osmolality Calculated 290 mOsm/kg (285-295); Potassium 3.7 mmol/L (3.5-5.1); Sodium 139 mmol/L (136-145); Total Bilirubin 0.3 mg/dL (0.15-1.2); Total Protein 6.7 g/dL (6.6-8.7)
[2024-02-23 10:58] LABS: Thyroid Stimulating Hormone 3.74 uIU/mL (0.27-4.20)
[2024-02-23] MEDS: pembrolizumab 200 MG in sodium chloride 0.9% 250 ML 516 MG IV (12:05)
[2024-02-23 12:39] VITALS: BP 107/69; PULSE 83; RESP 17; TEMP 36.4; O2SAT 93
== END 2024-02-23 23:59 | disposition home or self-care (01) ==
PROVIDERS: Internal Medicine; Nurse Practitioner; PCP Family Medicine; Visit Provider Radiology Radiation Oncology
DX: C32.0 Malignant neoplasm of glottis; C79.31 Secondary malignant neoplasm of brain; R13.19 Other dysphagia; Z79.899 Other long term (current) drug therapy; Z79.52 Long term (current) use of systemic steroids; Z51.12 Encounter for antineoplastic immunotherapy
CPT/HCPCS: 36591; 80053; 84443; 85025; 96413; 99215; A4222; J7050; J9271

== ENCOUNTER 2024-03-15 12:30 | Oncology outpatient (recurring) (ONCR) | payer MEDICARE, OTHER, SELFPAY ==
--- NOTE | 2024-02-27 14:00 | CT_ITS ---
WS: [id number] CT NECK TECHNIQUE: Contrast-enhanced CT of the neck with coronal and sagittal reformatted images. CLINICAL INFORMATION: metastasis to lung COMPARISON: CT 01/20/2022 and PET/CT 12/16/2023 DLP: 140.[address] scans at [facility] use at least one of these dose optimization techniques: automated e xposure control; mA and/or kV adjustment per patient size (includes targeted exams where dose is matc hed to clinical indication); or iterative reconstruction. FINDINGS: Enhancing soft tissue mass at the level of the cricoid cartilage and inferior piriform sinus describe d on the prior PET/CT today measuring 1.1 x 1.6 cm. This measures smaller today. FDG avid soft tissue metastasis in the RIGHT sternocleidomastoid measures approximately 1.3 x 1.1 cm. This is also smaller today. Additional FDG avid lymph node at the mediastinal inlet is improved measuring 5 mm compared to 9 mm p revious. Treatment-related changes in the anterior neck soft tissues. Treatment-related changes in the supragl ottic and glottic larynx. Retention cysts or polyps LEFT maxillary sinus. Mastoid air cells are well aerated. Parotid glands are normal. Normal submandibular glands. Some images degraded at the tongue b ase by dental artifact. Tiny RIGHT thyroid nodule. Lung apices appear well aerated. No new cervical l ymphadenopathy. Mild spondylitic changes cervical spine. Grade 1 anterolisthesis C7 on T1. CT/CT neck w con* [id number] IMPRESSION: 1. Previously described FDG avid soft tissue mass adjacent to the cricoid cart ilage on the LEFT measures 1.6 x 1.2 cm today and appears slightly smaller comp ared to the prior PET/CT considering differences in technique. 2. FDG avid RIGHT sternocleidomastoid mass measures 1.3 x 1.2 cm and also appe ars smaller today. 3. FDG avid lymph node at the thoracic inlet on the LEFT today measures 5 mm c ompared to 8 to 9 mm previously. 4. Evidence of treatment-related changes involving the anterior neck soft tiss ues and glottic and supraglottic larynx with circumferential edema and enhancem ent.
[2024-02-27] MEDS: iohexol 350 mg/mL 500 mL Btl (per mL) IV ×2 (14:23→14:27)
[2024-02-27] MEDS: iohexol 350 mg/mL 500 mL Btl (per mL) PO (14:23)
--- NOTE | 2024-02-27 14:30 | CT_ITS ---
WS: [id number] CT CHEST, ABDOMEN AND PELVIS WITH CONTRAST HISTORY: metastasis to lung, laryngeal cancer. TECHNIQUE: Contiguous 5 mm axial imaging performed through the chest, abdomen and pelvis with IV cont rast, oral contrast has been provided. Coronal and sagittal reformats chest. Coronal and sagittal ref ormats through the abdomen and pelvis. All CT scans at [facility] use at least one of these d ose optimization techniques: automated exposure control; mA and/or kV adjustment per patient size (in cludes targeted exams where dose is matched to clinical indication); or iterative reconstruction. CONTRAST: Omnipaque 350; 100 mL IV. DLP: 566.58 mGy.cm COMPARISON: PET/CT 12/18/[address]: Reidentified is a solid mass in the LEFT upper lobe that was positive on PET/CT. Mass measu res 2.3 x 2.9 cm and extends over a length of 3.7 cm. Moderate decrease in size since the prior study . No additional mass identified. Lymphadenopathy noted LEFT the LEFT hilum and AP window. Largest lym ph node is 1.9 cm. There are 2 abnormal lymph nodes. Heart size is normal. Contrast is noted in the e sophagus which may be from incomplete clearing of the esophagus or reflux disease. No axillary lymph nodes. Minimal atherosclerosis aorta. Normal size heart. Abdomen CT: Hepatic cysts. Cysts versus hemangioma are scattered throughout the liver. Negative on PE T/CT. No intrahepatic dilatation. Gallbladder is slightly contracted. Normal size spleen. Normal panc reas and adrenal glands. No renal obstruction. Upper pole LEFT renal cyst 4.3 x 3.8 cm Atherosclerosis aorta. Stomach is well distended with oral contrast. No small bowel obstruction. Numerous diverticula in the descending and sigmoid colon. Pelvic CT: Slightly contracted bladder with bladder wall thickening. Asymmetric bladder wall thickeni ng on the LEFT measuring up to 1.2 cm. Seminal vesicles are enlarged. No osseous destructive lesions are identified. CT/CT chest abdpel w/*[id number] IMPRESSION: 1. LEFT upper lobe PET/CT positive mass is reidentified measuring 2.3 x 2.9 cm . Mass has decreased in size. Prior measurement 4.0 x 5.0 cm. 2. Reidentified are the the LEFT hilar and AP window abnormal lymph nodes. Lar gest lymph node 1.9 cm. No change. 3. No new pulmonary mass. 4. Hepatic cysts and/or hemangiomas. No mass identified in the liver to sugges t metastatic disease. Normal adrenal glands. 5. New LEFT lateral bladder wall thickening measuring up to 1.2 cm. Recommend follow-up with urology to exclude uroepithelial lesion. 6. No ascites.
[2024-02-29 11:44] LABS: Basophils % 1.1 %; Eosinophils # 0.1 10^3/uL (0.0-0.8); Eosinophils % 2.3 %; Lymphocytes # 0.4 10^3/uL (0.8-4.8); Lymphocytes % 10.6 %; Mean Corpuscular HGB Conc 32.4 g/dL (30-55); Mean Corpuscular Hemoglobin 28.6 pg (27-33); Mean Corpuscular Volume 88.5 fl (82-101); Mean Platelet Volume 7.9 fL (7.4-10.4); Monocytes # 0.5 10^3/uL (0.2-0.9); Monocytes % 14.7 %; Neutrophils # 2.45 10^3/uL (1.8-7.7); Neutrophils % 70.4 %; Nucleated Red Blood Cells % 0 %; Platelet Count 312 10^3/cmm (157-399); Red Blood Count 3.84 10^6/uL (3.85-5.65); Red Cell Distribution Width 18.5 % (12.1-15.1); White Blood Count 3.48 10^3/uL (3.29-11.43)
[2024-02-29 12:14] LABS: Alanine Aminotransferase 10 U/L (0-41); Albumin Level 3.8 g/dL (3.5-5.2); Alkaline Phosphatase 79 U/L (40-130); Aspartate Amino Transferase 17 U/L (0-40); Blood Urea Nitrogen 11 mg/dL (8-23); Calcium 9.5 mg/dL (8.5-10.5); Carbon Dioxide 28 mmol/L (22-29); Chloride 102 mmol/L (98-107); Globulin 3.5 g/dL (1.3-4.6); Glomerular Filtration Rate 96.1 mL/min (90-130); Glucose 92 mg/dL (65-115); Osmolality Calculated 291 mOsm/kg (285-295); Sodium 141 mmol/L (136-145); Total Bilirubin 0.3 mg/dL (0.15-1.2); Total Protein 7.3 g/dL (6.6-8.7)
[2024-02-29 12:41] LABS: Anion Gap 14.9 (5-19); Potassium 3.9 mmol/L (3.5-5.1)
[2024-03-15 13:40] LABS: Basophils % 0.8 %; Eosinophils # 0.4 10^3/uL (0.0-0.8); Hematocrit 33.6 % (37-53); Lymphocytes # 0.3 10^3/uL (0.8-4.8); Lymphocytes % 6.9 %; Mean Corpuscular HGB Conc 32.4 g/dL (30-55); Mean Corpuscular Volume 89.4 fl (82-101); Mean Platelet Volume 7.8 fL (7.4-10.4); Monocytes # 0.5 10^3/uL (0.2-0.9); Monocytes % 10.8 %; Neutrophils # 3.53 10^3/uL (1.8-7.7); Neutrophils % 72.1 %; Nucleated Red Blood Cells % 0 %; Platelet Count 272 10^3/cmm (157-399); Red Blood Count 3.76 10^6/uL (3.85-5.65)
[2024-03-15 14:06] LABS: Alanine Aminotransferase 9 U/L (0-41); Albumin Level 3.8 g/dL (3.5-5.2); Alkaline Phosphatase 83 U/L (40-130); Anion Gap 11.2 (5-19); Aspartate Amino Transferase 13 U/L (0-40); Blood Urea Nitrogen 12 mg/dL (8-23); Calcium 9.1 mg/dL (8.5-10.5); Carbon Dioxide 28 mmol/L (22-29); Chloride 103 mmol/L (98-107); Creatinine Clr Calc Pharmacy 88.7904; Globulin 2.9 g/dL (1.3-4.6); Glomerular Filtration Rate 111.8 mL/min (90-130); Glucose 107 mg/dL (65-115); Lactate Dehydrogenase 118 U/L (135-225); Osmolality Calculated 286 mOsm/kg (285-295); Potassium 4.2 mmol/L (3.5-5.1); Sodium 138 mmol/L (136-145); Thyroid Stimulating Hormone 3.27 uIU/mL (0.27-4.20); Total Bilirubin 0.4 mg/dL (0.15-1.2); Total Protein 6.7 g/dL (6.6-8.7)
[2024-03-15] MEDS: pembrolizumab 200 MG in sodium chloride 0.9% 250 ML 516 MG IV (14:55)
--- NOTE | 2024-03-19 09:10 | ONCRAD EPV_ITS ---
Radiation Oncology Established Patient Visit Patient: Josué Buckner [id number] : 1955> Age: 69> Sex: Male> Dictated by: Dr. 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 ID: [id number], Energy: 6X, Dose/Fx (cGy): 225, #Fx: 30 / 30, Dose Correction (cGy): 0, Total Dose Delivered (cGy): 6,750, Start Date: 07/14/2020, End Date: 09/01/2020, Elapsed Days: 49 Treatment Site: Lung HN 60Gy, Ref. ID: [id number], Energy: 6X, Dose/Fx (cGy): 200, #Fx: 30 / 30, Dose Correction (cGy): 0, Total Dose Delivered (cGy): 6,000, Start Date: 12/28/2023, End Date: 02/10/2024, Elapsed Days: 44 Current History: Patient returns today for his first checkup month after having completed radiation. He is in good spirits today. He has a good appetite. He denies any new aches or pains. He has noticed no additional changes or problems in terms of swallowing. Current Medications: AmLODIPine Besylate, astragalus Root, cholecalciferol, daily Multiple Vitamins, garlic, ginkgo Biloba Extract, glucosamine Chondroitin Joint, magnesium, otezla, oxyCODONE HCl. Allergies: No Known Allergies Current Complaints / Review of Systems: . Vital Signs: Performed on 03/15/2024 12:37 PM BMI - 20.642 kg/m2, Height - 71 in, Weight - 148 lbs, Temperature - 96.7 f, Pulse - 114 /min (high), Respiration - 18 /min, O2 Sat - 96 %, Pain - 0, Fatigue - 0 and BP - 120/ 65 mm(hg). Physical Exam: General: Alert and oriented x 3. No acute distress. HEENT: Normocephalic atraumatic. Pupils equal, sclera clear, extraocular muscles intact.. LUNGS: Respiratory rate is regular nonlabored. HEART: Regular rate and rhythm, NEUROLOGIC: Alert and orient x 3. Gait and speech within normal limits Performance Status: 90 Lab: None pending. Pathology: Primary, c34.12 - malignant neoplasm of upper lobe, left bronchus or lung, Diagnosed 12/20/2023 (active) stage x, t2, n3, m0, Primary, c77.0 - secondary and unspecified malignant neoplasm of lymph nodes of head, face and neck, Diagnosed 12/20/2023 (active) and Primary, c32.0 - malignant neoplasm of glottis, Diagnosed 06/25/2020 (active) stage ii, t2, n0, m0. 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 His swallowing has nearly returned to normal. He will be seeing medical oncology today and he will follow-up with them on a regular basis. Signed by: 03/19/2024 9:08:19 AM <<Signature on File>> Time spent with patient: 20 CPT Code: CPT Code:
== END 2024-03-15 23:59 | disposition home or self-care (01) ==
PROVIDERS: Nurse Practitioner; PCP Family Medicine; Visit Provider Internal Medicine
DX: Z53.9 Procedure and treatment not carried out, unspecified reason (principal); Z51.12 Encounter for antineoplastic immunotherapy; C79.00 Secondary malignant neoplasm of unspecified kidney and renal pelvis; C32.0 Malignant neoplasm of glottis; C79.31 Secondary malignant neoplasm of brain; Z79.899 Other long term (current) drug therapy
CPT/HCPCS: 36591; 70491; 71260; 74177; 80053; 83615; 84443; 85025; 96413; 99213; A4222; J7050; J9271

== ENCOUNTER 2024-03-20 13:35 | Oncology outpatient (recurring) (ONCR) | payer MEDICARE, OTHER, SELFPAY ==
--- NOTE | 2024-03-20 13:45 | MR_ITS ---
WS: [id number] MRI BRAIN WITH AND WITHOUT CONTRAST HISTORY: brain met, history of laryngeal cancer. COMPARISON: 12/14/2023 TECHNIQUE: Multiplanar imaging performed through the brain with MultiHance 13 ml's IV. No acute infarcts are seen. Villanueva-white matter differentiation is well preserved. Numerous T2 and FLAI R signal tiny hyperintensities in the subcortical white matter. These are also noted on the prior linwood dy and do not enhance. No prior infarct. Mild symmetric volume loss and atrophy. No susceptibility artifacts or prior lacunar infarcts. Ventricles and extra-axial spaces are normal. Clivus and pituitary gland are normal. Visualized posterior fossa and brainstem are also normal. Reidentified is the ring-enhancing LEFT posterior parietal lobe at the occipital junction measuring 8 .6 mm. Mass is increased in size from 4.5 mm on the prior study. Minimal surrounding edema. No additi onal masses are identified. Dural venous sinuses are normal. Paranasal sinuses: Well aerated with no significant disease. Mastoid air cells: Small mucous retention cyst in the LEFT maxillary sinus. Calvarium and scalp: Normal. MR/MR head wo/w con [id number] IMPRESSION: 1. Single brain metastasis in the posterior LEFT parietal lobe has increased i n size from 4.5 to 8.6 mm. No additional enhancing masses. 2. Numerous T2 and FLAIR signal hyperintensities in the subcortical white dhiraj er do not enhance and are consistent with small vessel disease. No prior large infarct.
[2024-03-20] MEDS: gadobenate dimeglumine 20 mL vial 13 ML IV (14:27)
== END 2024-03-23 23:59 | disposition home or self-care (01) ==
LOC: RAD 13:35 → ONCMED 03-22 09:29
PROVIDERS: PCP Family Medicine; Visit Provider Internal Medicine
DX: Z53.9 Procedure and treatment not carried out, unspecified reason (principal); C34.12 Malignant neoplasm of upper lobe, left bronchus or lung; C32.9 Malignant neoplasm of larynx, unspecified; C32.0 Malignant neoplasm of glottis; C77.0 Secondary and unspecified malignant neoplasm of lymph nodes of head, face and neck; C78.02 Secondary malignant neoplasm of left lung; Z79.899 Other long term (current) drug therapy; Z79.52 Long term (current) use of systemic steroids; C78.00 Secondary malignant neoplasm of unspecified lung; C79.31 Secondary malignant neoplasm of brain; N32.89 Other specified disorders of bladder
CPT/HCPCS: 70553

== ENCOUNTER 2024-04-05 11:52 | Oncology outpatient (recurring) (ONCR) | payer MEDICARE, OTHER, SELFPAY ==
[2024-04-05 12:51] LABS: Basophils % 0.3 %; Eosinophils # 0.7 10^3/uL (0.0-0.8); Eosinophils % 9.5 %; Hematocrit 35.5 % (37-53); Lymphocytes # 0.5 10^3/uL (0.8-4.8); Lymphocytes % 5.9 %; Mean Corpuscular HGB Conc 32.7 g/dL (30-55); Mean Corpuscular Hemoglobin 29.4 pg (27-33); Mean Corpuscular Volume 90.1 fl (82-101); Mean Platelet Volume 7.9 fL (7.4-10.4); Monocytes # 0.6 10^3/uL (0.2-0.9); Monocytes % 7.7 %; Neutrophils # 5.98 10^3/uL (1.8-7.7); Neutrophils % 76.3 %; Nucleated Red Blood Cells % 0 %; Platelet Count 281 10^3/cmm (157-399); Red Blood Count 3.94 10^6/uL (3.85-5.65); Red Cell Distribution Width 15.1 % (12.1-15.1); White Blood Count 7.82 10^3/uL (3.29-11.43)
[2024-04-05 13:14] LABS: Alanine Aminotransferase 10 U/L (0-41); Albumin Level 3.8 g/dL (3.5-5.2); Alkaline Phosphatase 90 U/L (40-130); Aspartate Amino Transferase 15 U/L (0-40); Blood Urea Nitrogen 19 mg/dL (8-23); Calcium 9.5 mg/dL (8.5-10.5); Carbon Dioxide 28 mmol/L (22-29); Chloride 96 mmol/L (98-107); Creatinine Clr Calc Pharmacy 88.6366; Globulin 3.2 g/dL (1.3-4.6); Glomerular Filtration Rate 111.8 mL/min (90-130); Glucose 100 mg/dL (65-115); Osmolality Calculated 282 mOsm/kg (285-295); Sodium 135 mmol/L (136-145); Thyroid Stimulating Hormone 3.44 uIU/mL (0.27-4.20); Total Bilirubin 0.4 mg/dL (0.15-1.2)
[2024-04-05] MEDS: pembrolizumab 200 MG in sodium chloride 0.9% 250 ML 516 MG IV (14:41)
[2024-04-05 15:15] VITALS: BP 124/78; PULSE 78; RESP 18; TEMP 36.6; O2SAT 98
== END 2024-04-05 23:59 | disposition home or self-care (01) ==
PROVIDERS: Nurse Practitioner; PCP Family Medicine; Visit Provider Internal Medicine
DX: Z51.12 Encounter for antineoplastic immunotherapy (principal); C32.0 Malignant neoplasm of glottis; C79.31 Secondary malignant neoplasm of brain; C78.02 Secondary malignant neoplasm of left lung; R49.0 Dysphonia; D64.81 Anemia due to antineoplastic chemotherapy; D70.1 Agranulocytosis secondary to cancer chemotherapy; T45.1X5A Adverse effect of antineoplastic and immunosuppressive drugs, initial encounter; Z92.3 Personal history of irradiation; Z92.21 Personal history of antineoplastic chemotherapy; Z79.899 Other long term (current) drug therapy
CPT/HCPCS: 80053; 84443; 85025; 96413; 99214; A4222; J7050; J9271

== ENCOUNTER 2024-04-26 12:22 | Oncology outpatient (recurring) (ONCR) | payer MEDICARE, OTHER, SELFPAY ==
[2024-04-26 13:12] LABS: Basophils % 0.2 %; Eosinophils # 0.5 10^3/uL (0.0-0.8); Eosinophils % 8.7 %; Hematocrit 36.5 % (37-53); Lymphocytes # 0.4 10^3/uL (0.8-4.8); Lymphocytes % 7.7 %; Mean Corpuscular HGB Conc 32.9 g/dL (30-55); Mean Corpuscular Hemoglobin 30.1 pg (27-33); Mean Corpuscular Volume 91.5 fl (82-101); Mean Platelet Volume 7.8 fL (7.4-10.4); Monocytes # 0.5 10^3/uL (0.2-0.9); Monocytes % 7.9 %; Neutrophils # 4.32 10^3/uL (1.8-7.7); Neutrophils % 75.3 %; Nucleated Red Blood Cells % 0 %; Platelet Count 265 10^3/cmm (157-399); Red Blood Count 3.99 10^6/uL (3.85-5.65); White Blood Count 5.73 10^3/uL (3.29-11.43)
[2024-04-26 13:40] LABS: Alanine Aminotransferase 15 U/L (0-41); Alkaline Phosphatase 88 U/L (40-130); Anion Gap 11.2 (5-19); Aspartate Amino Transferase 19 U/L (0-40); Blood Urea Nitrogen 17 mg/dL (8-23); Calcium 9.2 mg/dL (8.5-10.5); Carbon Dioxide 29 mmol/L (22-29); Chloride 101 mmol/L (98-107); Creatinine Clr Calc Pharmacy 88.4128; Globulin 2.8 g/dL (1.3-4.6); Glomerular Filtration Rate 111.8 mL/min (90-130); Glucose 115 mg/dL (65-115); Osmolality Calculated 286 mOsm/kg (285-295); Potassium 4.2 mmol/L (3.5-5.1); Sodium 137 mmol/L (136-145); Thyroid Stimulating Hormone 3.54 uIU/mL (0.27-4.20); Total Bilirubin 0.3 mg/dL (0.15-1.2); Total Protein 6.8 g/dL (6.6-8.7)
[2024-04-26] MEDS: pembrolizumab 200 MG in sodium chloride 0.9% 250 ML 516 MG IV (14:56)
[2024-04-26 15:35] VITALS: BP 121/81; PULSE 72; RESP 17; TEMP 36.1; O2SAT 97
== END 2024-04-26 23:59 | disposition home or self-care (01) ==
PROVIDERS: PCP Family Medicine; Visit Provider Internal Medicine
DX: Z51.12 Encounter for antineoplastic immunotherapy (principal); C32.0 Malignant neoplasm of glottis; C79.31 Secondary malignant neoplasm of brain; C78.02 Secondary malignant neoplasm of left lung; I10 Essential (primary) hypertension; Z79.899 Other long term (current) drug therapy; R49.0 Dysphonia; Z95.828 Presence of other vascular implants and grafts; Z92.21 Personal history of antineoplastic chemotherapy; Z92.3 Personal history of irradiation; Z90.02 Acquired absence of larynx; D64.81 Anemia due to antineoplastic chemotherapy; D70.1 Agranulocytosis secondary to cancer chemotherapy; T45.1X5A Adverse effect of antineoplastic and immunosuppressive drugs, initial encounter
CPT/HCPCS: 80053; 84443; 85025; 96413; 99213; A4222; J7050; J9271

== ENCOUNTER 2024-05-17 11:10 | Oncology outpatient (recurring) (ONCR) | payer MEDICARE, OTHER, SELFPAY ==
[2024-05-17 12:01] LABS: Eosinophils # 0.4 10^3/uL (0.0-0.8); Hematocrit 36.5 % (37-53); Lymphocytes # 0.5 10^3/uL (0.8-4.8); Lymphocytes % 9.4 %; Mean Corpuscular HGB Conc 32.3 g/dL (30-55); Mean Corpuscular Hemoglobin 29.4 pg (27-33); Mean Corpuscular Volume 90.8 fl (82-101); Monocytes # 0.4 10^3/uL (0.2-0.9); Monocytes % 7.2 %; Neutrophils # 4.21 10^3/uL (1.8-7.7); Nucleated Red Blood Cells % 0 %; Platelet Count 256 10^3/cmm (157-399); Red Blood Count 4.02 10^6/uL (3.85-5.65); Red Cell Distribution Width 12.4 % (12.1-15.1); White Blood Count 5.54 10^3/uL (3.29-11.43)
[2024-05-17 12:39] LABS: Alanine Aminotransferase 14 U/L (0-41); Albumin Level 3.9 g/dL (3.5-5.2); Alkaline Phosphatase 77 U/L (40-130); Aspartate Amino Transferase 20 U/L (0-40); Blood Urea Nitrogen 17 mg/dL (8-23); Calcium 9.4 mg/dL (8.5-10.5); Carbon Dioxide 28 mmol/L (22-29); Chloride 101 mmol/L (98-107); Globulin 2.8 g/dL (1.3-4.6); Glomerular Filtration Rate 111.8 mL/min (90-130); Glucose 119 mg/dL (65-115); Osmolality Calculated 289 mOsm/kg (285-295); Sodium 138 mmol/L (136-145); Thyroid Stimulating Hormone 3.32 uIU/mL (0.27-4.20); Total Bilirubin 0.4 mg/dL (0.15-1.2); Total Protein 6.7 g/dL (6.6-8.7)
[2024-05-17] MEDS: pembrolizumab 200 MG in sodium chloride 0.9% 250 ML 516 MG IV (13:15)
[2024-05-17 13:58] VITALS: BP 107/65; PULSE 81; RESP 18; TEMP 36.5; O2SAT 96
== END 2024-05-17 23:59 | disposition home or self-care (01) ==
PROVIDERS: PCP Family Medicine; Visit Provider Internal Medicine
DX: Z51.12 Encounter for antineoplastic immunotherapy (principal); C32.0 Malignant neoplasm of glottis; C78.02 Secondary malignant neoplasm of left lung; C79.31 Secondary malignant neoplasm of brain; R49.0 Dysphonia; D64.81 Anemia due to antineoplastic chemotherapy; D70.9 Neutropenia, unspecified; T45.1X5A Adverse effect of antineoplastic and immunosuppressive drugs, initial encounter; Z79.899 Other long term (current) drug therapy; Z95.828 Presence of other vascular implants and grafts
CPT/HCPCS: 36591; 80053; 84443; 85025; 96413; 99213; A4222; J7050; J9271

== ENCOUNTER 2024-06-07 13:00 | Oncology outpatient (recurring) (ONCR) | payer MEDICARE, OTHER, SELFPAY ==
[2024-06-06 14:42] LABS: Eosinophils # 0.4 10^3/uL (0.0-0.8); Hematocrit 38.6 % (37-53); Lymphocytes # 0.6 10^3/uL (0.8-4.8); Lymphocytes % 9.3 %; Mean Corpuscular HGB Conc 32.4 g/dL (30-55); Mean Corpuscular Hemoglobin 28.9 pg (27-33); Mean Corpuscular Volume 89.1 fl (82-101); Mean Platelet Volume 8.1 fL (7.4-10.4); Monocytes # 0.5 10^3/uL (0.2-0.9); Monocytes % 8.7 %; Neutrophils % 74.8 %; Nucleated Red Blood Cells % 0 %; Platelet Count 291 10^3/cmm (157-399); Red Blood Count 4.33 10^6/uL (3.85-5.65); Red Cell Distribution Width 12.2 % (12.1-15.1); White Blood Count 6.01 10^3/uL (3.29-11.43)
[2024-06-06 15:10] LABS: Alanine Aminotransferase 11 U/L (0-41); Albumin Level 3.9 g/dL (3.5-5.2); Alkaline Phosphatase 82 U/L (40-130); Anion Gap 13.2 (5-19); Aspartate Amino Transferase 15 U/L (0-40); Blood Urea Nitrogen 24 mg/dL (8-23); Calcium 9.4 mg/dL (8.5-10.5); Carbon Dioxide 29 mmol/L (22-29); Chloride 101 mmol/L (98-107); Globulin 3.1 g/dL (1.3-4.6); Glomerular Filtration Rate 95.8 mL/min (90-130); Glucose 114 mg/dL (65-115); Lactate Dehydrogenase 131 U/L (135-225); Osmolality Calculated 293 mOsm/kg (285-295); Potassium 4.2 mmol/L (3.5-5.1); Sodium 139 mmol/L (136-145); Thyroid Stimulating Hormone 3.73 uIU/mL (0.27-4.20); Total Bilirubin 0.3 mg/dL (0.15-1.2)
[2024-06-07] MEDS: pembrolizumab 200 MG in sodium chloride 0.9% 250 ML 516 MG IV (13:35)
[2024-06-07 14:38] VITALS: BP 128/80; PULSE 76; RESP 16; O2SAT 94
== END 2024-06-07 23:59 | disposition home or self-care (01) ==
PROVIDERS: Internal Medicine; PCP Family Medicine; Visit Provider Internal Medicine Medical Oncology
DX: Z53.9 Procedure and treatment not carried out, unspecified reason (principal); Z51.12 Encounter for antineoplastic immunotherapy; C32.0 Malignant neoplasm of glottis; C79.31 Secondary malignant neoplasm of brain; R49.0 Dysphonia; D64.81 Anemia due to antineoplastic chemotherapy; D70.1 Agranulocytosis secondary to cancer chemotherapy; T45.1X5A Adverse effect of antineoplastic and immunosuppressive drugs, initial encounter; R68.84 Jaw pain; Z92.21 Personal history of antineoplastic chemotherapy; Z95.828 Presence of other vascular implants and grafts; Z92.3 Personal history of irradiation
CPT/HCPCS: 36591; 80053; 83615; 84443; 85025; 96413; 99214; A4222; J7050; J9271

== ENCOUNTER 2024-06-28 11:00 | Oncology outpatient (recurring) (ONCR) | payer MEDICARE, OTHER, SELFPAY ==
--- NOTE | 2024-06-21 14:00 | CTR_ITS ---
PROCEDURE INFORMATION: Exam: CT Neck With Contrast Exam date and time: 06/21/2024 3:12 PM Age: 69 years old Clinical indication: Condition or disease; Other: Throat, lung cancer; Prior surgery; Surgery date: 6+ months; Surgery type: Port, larynx; Additional info: Scc head/neck, new left jaw pain; Scheduled CT cap on 06/21/24, can we TECHNIQUE: Imaging protocol: Computed tomography of the neck with contrast. Radiation optimization: All CT scans at this facility use at least one of these dose optimization techniques: automated exposure control; mA and/or kV adjustment per patient size (includes targeted exams where dose is matched to clinical indication); or iterative reconstruction. Contrast material: OMNI 350; Contrast volume: 75 ml; Contrast route: INTRAVENOUS (IV); COMPARISON: CT neck w con* [id number] 07/22/2024 14:21 RADIATION DOSE METRICS: Total DLP (mGy-cm): 148.79 FINDINGS: Limitations: Metallic dental artifact results in significant beam hardening which obscures resolution at this level. Brain: Lower brain: A 1 cm ring-enhancing lesion is seen and partially visualized on image number 1 of series 5 being located in the mid left temporal lobe region. Salivary glands: Normal. Glands are normal in size. Pharynx: Circumferential generalized mucosal thickening is seen about the pharyngeal region No significant tonsillar enlargement. Larynx: Suspected postsurgical changes involving the larynx with soft tissue fullness in the left aryepiglottic region and abnormal enhancement and soft tissue prominence involving the left ventricle and piriform sinuses as well. Additionally just lateral to the left laryngeal cartilage is an ill-defined irregularly enhancing soft tissue process longitudinally in orientation and measuring 3.0 by 1.9 x 1.3 cm in the CC, AP and transverse dimensions, respectively (prior 1.6 x 1.1 x 1.5 cm). This is best seen on image 63 of series 5, image 34 of series 8 and image 69 of series 7. Thyroid: Normal. No enlarged or calcified nodules. Trachea: Visualized trachea is unremarkable. Lungs: Partially visualized at the edge of the field of view is a lobulated mass in the left upper lung measuring 2.6 x 2.3 cm in size. Trace left apical pleural-parenchymal changes are noted question postradiation. Lymph nodes: There are no pathologically enlarged cervical lymph nodes seen. Bones/joints: 2 mm degenerative ligamentous laxity/anterolisthesis of C7/T1 noted on the sagittal reconstructions.. No acute fracture. Soft tissues: Mural thickening of the cervicothoracic esophagus is seen. CT/CT neck w con* [id number] IMPRESSION: 1. 1 cm ring-enhancing metastatic lesion in the left temporal lobe partially visualized at the edge of the [id number] and MRI and/or CT are suggested for further discrimination . 2. Left cervical/neck soft tissue lesion slightly larger (see above) but not as well defined on these contrasted images just lateral to the cricoid cartilage with post treatment changes again seen. 3. Partially visualized left upper lung slightly lobulated soft tissue mass measuring 2.6 x 2.3 cm in size.
--- NOTE | 2024-06-21 14:00 | CTR_ITS ---
PROCEDURE INFORMATION: Exam: CT Chest With Contrast; Diagnostic Exam date and time: 06/21/2024 3:06 PM Age: 69 years old Clinical indication: Condition or disease; Other: Lung and larynx; Prior surgery; Surgery date: 6+ months; Surgery type: Port, larynx; Additional info: Metastasis to lung, Dr. Sagastume would like this done on 06/21/24 TECHNIQUE: Imaging protocol: Diagnostic computed tomography of the chest with contrast. Radiation optimization: All CT scans at this facility use at least one of these dose optimization techniques: automated exposure control; mA and/or kV adjustment per patient size (includes targeted exams where dose is matched to clinical indication); or iterative reconstruction. Contrast material: OMNI 350; Contrast volume: 75 ml; Contrast route: INTRAVENOUS (IV); COMPARISON: CT chest abdpel w/*[id number] 02/27/2024 2:15 PM RADIATION DOSE METRICS: Total DLP (mGy-cm): 525.91 FINDINGS: Lungs: Redemonstrated solid left upper lobe mass which measures 1.8 x by 2.4 cm, previously 2.3 x 2.9 cm. No additional new or enlarging nodules identified. There is adjacent linear scarring with mild ground-glass opacities, new from prior study. Pleural spaces: Unremarkable. No pneumothorax. No pleural effusion. Heart: Unremarkable. No cardiomegaly. No pericardial effusion. Lymph nodes: Interval mild decrease in size of previously seen enlarged lymph nodes within left hilum as well as AP window the AP window lymph nodes are now subcentimeter. Left hilar lymph node previously measured 1.9 cm, now 1.4 cm. No enlarged axillary lymph nodes. Vasculature: Arterial is noted within esophagus, which may represent esophageal reflux disease. Bones/joints: Unremarkable. No acute fracture. Soft tissues: Unremarkable. Other findings: Contrast material is visualized within esophagus. PROCEDURE INFORMATION: Exam: CT Abdomen And Pelvis With Contrast Exam date and time: 06/21/2024 3:06 PM Age: 69 years old Clinical indication: Condition or disease; Other: Lung and larynx; Prior surgery; Surgery date: 6+ months; Surgery type: Port, larynx; Additional info: Metastasis to lung, Dr. Sagastume would like this done on 06/21/24 TECHNIQUE: Imaging protocol: Computed tomography of the abdomen and pelvis with contrast. Radiation optimization: All CT scans at this facility use at least one of these dose optimization techniques: automated exposure control; mA and/or kV adjustment per patient size (includes targeted exams where dose is matched to clinical indication); or iterative reconstruction. Contrast material: OMNI 350; Contrast volume: 75 ml; Contrast route: INTRAVENOUS (IV); COMPARISON: CT chest abdpel w/*[id number] 02/27/2024 2:15 PM RADIATION DOSE METRICS: Total DLP (mGy-cm): 525.91 FINDINGS: Lungs: Unremarkable. Liver: Stable appearance of the liver with multiple simple hepatic cysts. Several hypodense hepatic lesions demonstrate nodular peripheral enhancement and may represent hemangiomas, not significantly changed from prior and negative on prior PET-CT study. Additional subcentimeter hypodensities within the liver, incompletely characterized but may represent simple cysts. Gallbladder and biliary ducts: Normal. No calcified stones. No ductal dilation. Pancreas: Normal. No ductal dilation. Spleen: Normal. No splenomegaly. Adrenal glands: Normal. No mass. Kidneys and ureters: 4.3 cm simple appearing left upper pole renal cyst. No further imaging follow-up is required. Stomach and bowel: Oral contrast progresses to distal small bowel. Colonic diverticulosis. No obstruction. Appendix: No evidence of appendicitis. Intraperitoneal space: Unremarkable. No free air. No significant fluid collection. Vasculature: Unremarkable. No abdominal aortic aneurysm. Lymph nodes: Unremarkable. No enlarged lymph nodes. Urinary bladder: Urinary bladder is underdistended. Previously described asymmetric bladder wall thickening is not appreciated on this study. Reproductive: Enlarged seminal vesicles. Bones/joints: No destructive osseous lesions identified. Soft tissues: Unremarkable. CT/CT chest abdpel w/*[id number] IMPRESSION: 1. Redemonstrated left upper lobe pulmonary mass which demonstrated avidity on prior PET-CT study measuring 1.8 x 2.4 cm, previously 2.3 x 2.9. This appears slightly smaller on today's study with new adjacent linear scarring/atelectasis and mild ground-glass opacity. Findings may represent posttreatment changes. 2. No new or enlarging pulmonary nodules identified. 3. Mild interval decrease in left hilar and AP window lymphadenopathy. 4. Contrast material is visualized within esophagus, which may represent esophageal reflux disease. IMPRESSION: 1. No acute abdominopelvic process. 2. Stable appearance of multiple hepatic cysts and/or hemangiomas. 3. Colonic diverticulosis without CT evidence of acute diverticulitis. COMMENTS: Consistent with the [employer]'s Incidental Findings Committee white paper (J Am Melanie Radiol 2018): Any incidental renal lesion less than 1 cm or classified as too small to characterize, or any incidental cystic renal lesion characterized as simple-appearing, is likely benign. No follow-up imaging is recommended for these lesions per consensus recommendations based on imaging criteria.
[2024-06-21] MEDS: iohexol 350 mg/mL 500 mL Btl (per mL) IV ×2 (15:21→15:23)
[2024-06-21] MEDS: iohexol 350 mg/mL 500 mL Btl (per mL) PO (15:22)
[2024-06-28 11:24] LABS: Basophils % 0.1 %; Eosinophils # 0.5 10^3/uL (0.0-0.8); Eosinophils % 6.2 %; Hematocrit 37.5 % (37-53); Lymphocytes # 0.5 10^3/uL (0.8-4.8); Lymphocytes % 7.2 %; Mean Corpuscular HGB Conc 32.3 g/dL (30-55); Mean Corpuscular Hemoglobin 28.5 pg (27-33); Mean Corpuscular Volume 88.4 fl (82-101); Monocytes # 0.5 10^3/uL (0.2-0.9); Monocytes % 6.9 %; Neutrophils # 5.83 10^3/uL (1.8-7.7); Neutrophils % 79.2 %; Nucleated Red Blood Cells % 0 %; Platelet Count 305 10^3/cmm (157-399); Red Blood Count 4.24 10^6/uL (3.85-5.65); Red Cell Distribution Width 12.4 % (12.1-15.1); White Blood Count 7.37 10^3/uL (3.29-11.43)
[2024-06-28 11:55] LABS: Alanine Aminotransferase 9 U/L (0-41); Albumin Level 3.8 g/dL (3.5-5.2); Alkaline Phosphatase 90 U/L (40-130); Anion Gap 12.9 (5-19); Aspartate Amino Transferase 12 U/L (0-40); Blood Urea Nitrogen 22 mg/dL (8-23); Calcium 9.3 mg/dL (8.5-10.5); Carbon Dioxide 29 mmol/L (22-29); Chloride 100 mmol/L (98-107); Globulin 3.3 g/dL (1.3-4.6); Glomerular Filtration Rate 111.8 mL/min (90-130); Glucose 128 mg/dL (65-115); Osmolality Calculated 291 mOsm/kg (285-295); Potassium 3.9 mmol/L (3.5-5.1); Sodium 138 mmol/L (136-145); Thyroid Stimulating Hormone 5.25 uIU/mL (0.27-4.20); Total Bilirubin 0.3 mg/dL (0.15-1.2); Total Protein 7.1 g/dL (6.6-8.7)
[2024-06-28] MEDS: pembrolizumab 200 MG in sodium chloride 0.9% 250 ML 600 MG IV (12:57)
[2024-06-28 13:40] VITALS: BP 120/78; PULSE 74; RESP 18; TEMP 36.6; O2SAT 98
== END 2024-06-28 23:59 | disposition home or self-care (01) ==
PROVIDERS: PCP Family Medicine; Visit Provider Nurse Practitioner Family
DX: Z53.9 Procedure and treatment not carried out, unspecified reason; Z51.12 Encounter for antineoplastic immunotherapy; C34.12 Malignant neoplasm of upper lobe, left bronchus or lung; C32.0 Malignant neoplasm of glottis; C77.0 Secondary and unspecified malignant neoplasm of lymph nodes of head, face and neck; C78.02 Secondary malignant neoplasm of left lung; C79.31 Secondary malignant neoplasm of brain; Z79.899 Other long term (current) drug therapy; Z95.828 Presence of other vascular implants and grafts; Z92.3 Personal history of irradiation; D64.81 Anemia due to antineoplastic chemotherapy; D70.1 Agranulocytosis secondary to cancer chemotherapy; T45.1X5A Adverse effect of antineoplastic and immunosuppressive drugs, initial encounter
CPT/HCPCS: 70491; 71260; 74177; 80053; 84443; 85025; 96413; 99213; A4222; J7050; J9271

== ENCOUNTER 2024-07-02 14:11 | Oncology outpatient (recurring) (ONCR) | payer MEDICARE, OTHER, SELFPAY ==
--- NOTE | 2024-07-02 14:16 | MR_ITS ---
WS: [id number] MRI HEAD WITH CONTRAST TECHNIQUE: Sagittal T1, T2 axial, T2 axial FLAIR, axial susceptibility weighted imaging, axial diffusion weighted images, and coronal T2 images were obtained. Pre and post-T1 axial and post T1 coronal images. ADC and FSPGR images. 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 Largest new lesion involves the cerebellar vermis measuring 10 to 11 mm. Remaining new lesions are subcentimeter in size. Notable lesions involving the RIGHT thalamus and LEFT basal ganglia. Notable lesions involving the RIGHT ventral robson and LEFT temporal lobe. A small amount of edema associated with the new lesions worse in the LEFT anterior temporal lobe. Previously described LEFT parietal occipital metastatic lesion today measures 1.4 x 1.4 cm increased from 0.8 cm previous with increased central necrosis and surrounding T2 signal normality some of which is likely due to treatment related effect. No restricted diffusion to suggest acute ischemia. No hydrocephalus or midline shift. Mild small vessel changes. Moderate parenchymal volume loss. Normal vascular flow voids at the skull base. No extra-axial fluid collections. Paranasal sinuses and mastoid air cells are well aerated. No other acute fin dings. MR/MR head wo/w con [id number] IMPRESSION: 1. Numerous new enhancing supra and infratentorial metastatic lesions. 2. Previous described lesion in the LEFT parasagittal parietal occipital junct ion is increased in size with increased surrounding edema some of which may be due to treatment effect. Today this measures approximately 1.4 x 1.4 cm with in creased central necrosis. 3. Numerous new supra and infratentorial enhancing metastatic lesions. Notable lesions involving the RIGHT thalamus and LEFT basal ganglia. Enhancing lesions involving the ventral RIGHT robson and cerebellar vermis. Small lesion in the RI GHT cerebellar hemisphere. 4. Enhancing lesions within the LEFT anterior and posterior temporal lobe. 5. These new lesions demonstrate only a small amount of surrounding edema wors e in the LEFT anterior temporal lobe 6. Largest new lesion measures 10 to 11 mm involving the cerebellar vermis. Re maining scattered lesions are subcentimeter in size.
[2024-07-02] MEDS: gadobenate dimeglumine 20 mL vial IV (15:14)
== END 2024-07-13 23:59 | disposition home or self-care (01) ==
PROVIDERS: PCP Family Medicine; Visit Provider Internal Medicine
DX: C79.31 Secondary malignant neoplasm of brain (principal); C32.0 Malignant neoplasm of glottis
CPT/HCPCS: 70553

== ENCOUNTER 2024-07-03 09:26 | Emergency (ER) | payer MEDICARE, OTHER, SELFPAY ==
[2024-07-03 09:46] VITALS: BP 102/64; PULSE 114; RESP 18; TEMP 36.9; O2SAT 96; BMI 20.3
[2024-07-03] MEDS: dexamethasone 10 mg/mL INJ IM (10:29)
--- NOTE | 2024-07-03 10:29 | ECG_ITS ---
[facility] Test Date: 2024-07-03 Pat Name: Dudley Moses Department: Room: Gender: Male Prototype Model Maker: : 1955 Requested By: Vincenzo Reyes Order Number: [id number] Reading MD: KYLER MERRITT Measurements Intervals [place] Rate: 102 P: 88 [place]: 152 QRS: 89 QRSD: 86 T: 80 QT: 338 QTc: 440 Interpretive Statements SINUS TACHYCARDIA ABNORMAL RHYTHM ECG WARNING: DATA QUALITY MAY AFFECT INTERPRETATION No previous ECG available for comparison Electronically Signed On 07-05-2024 23:34:31 CDT by KYLER MERRITT [email or web address]
--- NOTE | 2024-07-03 10:34 | W.ED.GENADLT ---
HPI - General Adult General: Chief complaint: Ear Stated complaint: dr gomes, pain in throat, trouble swallowing Time Seen by Provider: 07/03/24 09:53 History of Present Illness: 69-year-old male directed here from the oncology clinic. Patient has a known laryngeal cancer he had an MRI yesterday that shows multiple new lesions in the brain he has had increasing throat pain and difficulty swallowing some mild headache as well he is on Keytruda at the moment. He does not get any other radiation or chemo he had previously been treated with both. He is scheduled to be seen at ENT in [place] to be reevaluated. Dr. Sagastume sent him to the emergency room because of the newfound brain metastasis. Associated symptoms: Deny chest pain, dyspnea or rash Related Data Home Medications ?Medication ?Instructions ?Recorded ?Confirmed apremilast 30 mg tablet (Otezla) 30 mg PO BID 06/04/20 07/03/24 triamcinolone acetonide 0.1 % 0.1 applic topical 2XD 12/13/23 07/03/24 topical ointment ibuprofen 200 mg tablet (Advil) 200 mg PO Q4H PRN Pain 07/03/24 07/03/24 pembrolizumab 25 mg/mL intravenous 25 mg IV Q21D cancer 07/03/24 07/03/24 solution (Keytruda) Previous Rx's ?Medication ?Instructions ?Recorded amlodipine 5 mg tablet 5 mg PO DAILY #90 tabs 04/10/24 dexamethasone 4 mg tablet 4 mg PO QID #120 tabs 07/03/24 Allergies Allergy/AdvReac Type Severity Reaction Status Date / Time No Known Allergies Allergy Verified 06/28/24 11:55 Review of Systems Const: Denies: fever(s) or chills Card: Denies: chest pain Resp: Denies: dyspnea GI: Denies: abdominal pain : Denies: dysuria, urinary frequency or urinary urgency Musc: Denies: neck pain or back pain Skin/Breast: Denies: rash PFSH ED PFSH: Medical History Port-A-Cath in place 12/28/23 Dr Orellana Hx of laryngeal cancer Joint pain Dactylitis of finger Immunization counseling High risk medication use Plaque psoriasis Psoriatic arthritis Surgical History History of ear, nose, and throat (ENT) surgery history of removal of lesion on vocal cord History of dental surgery Family History Other Rheumatoid arthritis Denies family history of Diabetes Lupus CAD (coronary artery disease) Hyperlipidemia Chronic kidney disease (CKD) Lung disease Cancer Hypertension Stroke Social History Alcohol intake: former Substance/Drug Use: never Physical Exam Const: GENERAL APPEARANCE: cooperative ORIENTATION/CONSCIOUSNESS: Yes awake, Yes oriented to person, Yes oriented to place and Yes oriented to time HENMT: COMMON NORMALS: normocephalic, atraumatic and hearing grossly normal bilaterally HEAD & SCALP: normocephalic and atraumatic Resp: COMMON NORMALS: normal respiratory effort, No retractions, No use of accessory muscles and clear to auscultation bilaterally AUSCULTATION: clear to auscultation bilaterally Cardio: COMMON NORMALS: regular rate, regular rhythm and No murmurs present (Cardio) RATE: regular rate RHYTHM: regular rhythm GI: COMMON NORMALS: Soft to palpation and No hepatosplenomegaly present AUSCULTATION: Yes normoactive bowel sounds PALPATION: Yes Soft to palpation, No Tenderness to palpation present (GI), No Guarding due to palpation present (GI) and Yes No hepatosplenomegaly present Extremity: COMMON NORMALS: normal to inspection, capillary refill normal, no clubbing, cyanosis or edema, no calf tenderness and no pedal edema Neuro: SENSORIUM/ORIENTATION: Yes oriented to person, Yes oriented to place and Yes oriented to time Skin: COMMON NORMALS: no rashes or lesions noted GENERAL SKIN EXAM: no rashes or lesions noted Course Vital Signs: Vital signs: Vital Signs Temperature 98.4 F 07/03/24 09:46 Pulse Rate 101 H 07/03/24 13:27 Respiratory Rate 18 07/03/24 13:27 Blood Pressure 134/77 07/03/24 13:27 Pulse Oximetry 97 07/03/24 13:27 Oxygen Delivery Me thod Room Air 07/03/24 11:05 [facility] - General Adult Medical Decision Making Patient awake and alert no significant focal deficits. He was given 10 of dexamethasone we initiated the process of transferring him to [place] per Dr. Sagastume's recommendation. Patient wanted to drive himself there. He did not want to wait until we completed the transfer process. He states he will go to the ER there and get evaluated. Discussed some of that we will have to start with a new evaluation in the emergency room when he gets here we did forward the MRI scans to [facility] so they would be available. We also contacted the transfer center and advised them that the patient had left and would be driving himself there and presenting to the emergency room because he did not want to wait for us to complete the transfer process. patient is planning to go home do several things before driving to [place]. He got his first dexamethasone at 1030 he should take 4 mg of oral dexamethasone every 6 hours until he is seen in's the ER there. He was given prescription for this but. Medical Records I reviewed the patient's medical records. Lab Data I reviewed the patient's lab results. 07/03/24 10:45 07/03/24 10:45 Laboratory Results WBC 6.88 10^3/uL (3.29-11.43) 07/03/24 10:45 RBC 4.34 10^6/uL (3.85-5.65) 07/03/24 10:45 Hgb 12.30 g/dL (11.27-16.99) 07/03/24 10:45 Hct 38.4 % (37-53) 07/03/24 10:45 MCV 88.5 fl (82-101) 07/03/24 10:45 MCH 28.3 pg (27-33) 07/03/24 10:45 MCHC 32.0 g/dL (30-55) 07/03/24 10:45 RDW 12.4 % (12.1-15.1) 07/03/24 10:45 Plt Count 285 10^3/cmm (157-399) 07/03/24 10:45 MPV 8.0 fL (7.4-10.4) 07/03/24 10:45 Neut % (Auto) 79.6 % 07/03/24 10:45 Lymph % (Auto) 7.3 % 07/03/24 10:45 [place] % (Auto) 8.6 % 07/03/24 10:45 Eos % (Auto) 4.1 % 07/03/24 10:45 Baso % (Auto) 0.0 % 07/03/24 10:45 Neut # (Auto) 5.48 10^3/uL (1.8-7.7) 07/03/24 10:45 Lymph # (Auto) 0.5 10^3/uL (0.8-4.8) L 07/03/24 10:45 [place] # (Auto) 0.6 10^3/uL (0.2-0.9) 07/03/24 10:45 Eos # (Auto) 0.3 10^3/uL (0.0-0.8) 07/03/24 10:45 Baso # (Auto) 0.0 10^3/uL (0.0-0.1) 07/03/24 10:45 Nucleated RBC % (auto) 0 % 07/03/24 10:45 Nucleated RBCs # 0.0 /100WBC 07/03/24 10:45 Sodium 140 mmol/L (136-145) 07/03/24 10:45 Potassium 3.9 mmol/L (3.5-5.1) 07/03/24 10:45 Chloride 101 mmol/L (98-107) 07/03/24 10:45 Carbon Dioxide 28 mmol/L (22-29) 07/03/24 10:45 Anion Gap 14.9 (5-19) 07/03/24 10:45 BUN 25 mg/dL (8-23) H 07/03/24 10:45 Creatinine 0.7 mg/dL (0.7-1.2) 07/03/24 10:45 GFR Calculation 111.8 mL/min (90-130) 07/03/24 10:45 Glucose 99 mg/dL (65-115) 07/03/24 10:45 Calculated Osmolality 294 mOsm/kg (285-295) 07/03/24 10:45 Calcium 9.3 mg/dL (8.5-10.5) 07/03/24 10:45 Total Bilirubin 0.4 mg/dL (0.15-1.2) 07/03/24 10:45 AST 12 U/L (0-40) 07/03/24 10:45 ALT 9 U/L (0-41) 07/03/24 10:45 Alkaline Phosphatase 88 U/L (40-130) 07/03/24 10:45 Total Protein 7.4 g/dL (6.6-8.7) 07/03/24 10:45 Albumin 3.9 g/dL (3.5-5.2) 07/03/24 10:45 Globulin 3.5 g/dL (1.3-4.6) 07/03/24 10:45 No radiology studies performed this visit Discharge Plan Discharge Patient Disposition: Home Clinical Impression: Metastasis to brain, Malignant neoplasm of vocal cord, Metastasis to lung Condition: Stable Prescriptions: New dexamethasone 4 mg tablet 4 mg PO QID Qty: 120 0RF No Action Otezla 30 mg tablet 30 mg PO BID triamcinolone acetonide 0.1 % ointment 0.1 applic topical 2XD amlodipine 5 mg tablet 5 mg PO DAILY Qty: 90 0RF ibuprofen [Advil] 200 mg Tablet 200 mg PO Q4H PRN (Reason: Pain) Keytruda 25 mg/mL Solution 25 mg IV Q21D Discharge Orders: Discharge ED (Routine); Ordered 07/03/24 Ordered By: Vincenzo Gil Referrals: Jose Manuel Junior MD [Primary Care Provider, Family Practice] Patient Instructions: Opioid Safety, Pain Management Activity Restrictions/Additional Instructions: Thank you for choosing [facility] for your healthcare needs today. It is very important that you follow up as instructed or that you return to the Emergency Department should you have concerns or if your condition changes or worsens in any way. You were seen in the emergency room at the request of your oncologist for recently noted brain metastasis. We gave you dexamethasone 10 mg IV started on dexamethasone 4 mg 4 times a day to help with swelling in the brain. We are making arrangements to transfer you to [place]. You requested to be discharged from here and wanted to go to the [facility] emergency room on your own. We have sent the MRI that was done recently to [place]. Print Language: [place] Coding Level of Care Code ED Rn Disease Management for Sarita Jiménez
[2024-07-03 10:53] LABS: Eosinophils # 0.3 10^3/uL (0.0-0.8); Eosinophils % 4.1 %; Hematocrit 38.4 % (37-53); Lymphocytes # 0.5 10^3/uL (0.8-4.8); Lymphocytes % 7.3 %; Mean Corpuscular Hemoglobin 28.3 pg (27-33); Mean Corpuscular Volume 88.5 fl (82-101); Monocytes # 0.6 10^3/uL (0.2-0.9); Monocytes % 8.6 %; Neutrophils # 5.48 10^3/uL (1.8-7.7); Neutrophils % 79.6 %; Nucleated Red Blood Cells % 0 %; Platelet Count 285 10^3/cmm (157-399); Red Blood Count 4.34 10^6/uL (3.85-5.65); Red Cell Distribution Width 12.4 % (12.1-15.1); White Blood Count 6.88 10^3/uL (3.29-11.43)
[2024-07-03 11:05] VITALS: BP 122/67; PULSE 103; O2SAT 92
[2024-07-03 11:17] LABS: Alanine Aminotransferase 9 U/L (0-41); Albumin Level 3.9 g/dL (3.5-5.2); Alkaline Phosphatase 88 U/L (40-130); Anion Gap 14.9 (5-19); Aspartate Amino Transferase 12 U/L (0-40); Blood Urea Nitrogen 25 mg/dL (8-23); Calcium 9.3 mg/dL (8.5-10.5); Carbon Dioxide 28 mmol/L (22-29); Chloride 101 mmol/L (98-107); Creatinine Clr Calc Pharmacy 85.7473; Globulin 3.5 g/dL (1.3-4.6); Glomerular Filtration Rate 111.8 mL/min (90-130); Glucose 99 mg/dL (65-115); Osmolality Calculated 294 mOsm/kg (285-295); Potassium 3.9 mmol/L (3.5-5.1); Sodium 140 mmol/L (136-145); Total Bilirubin 0.4 mg/dL (0.15-1.2); Total Protein 7.4 g/dL (6.6-8.7)
[2024-07-03 12:15] VITALS: BP 104/66; PULSE 99; RESP 18; O2SAT 93
--- NOTE | 2024-07-03 13:04 | PC.NURSE ---
PT states that he does not want to wait for transfer. PT states that he has personal things to do at home and he will drive himself to [place]. This nurse explained to PT he will have to start a new visit and it will not be a transfer, PT is ok with that. PT is polite understanding at this time.
[2024-07-03 13:27] VITALS: BP 134/77; PULSE 101; RESP 18; O2SAT 97
== END 2024-07-03 13:39 | disposition home or self-care (01) ==
PROVIDERS: Emergency Provider Family Medicine; PCP Family Medicine
DX: C32.0 Malignant neoplasm of glottis (principal); C78.00 Secondary malignant neoplasm of unspecified lung; C79.31 Secondary malignant neoplasm of brain
CPT/HCPCS: 80053; 85025; 93005; 96372; 99284; J1100